=== PATIENT | female | born 1955 | race Caucasian/White ===

== ENCOUNTER 2017-11-30 17:18 | Emergency (ER) | payer MEDICARE, MEDICAID ==
[~2017-11-30] VITALS: Ht 162.6 cm; Wt 59.1 kg
[~2017-11-30 17:18] MED LIST: ALBU18HF2 INH; ALBU2.5V12 NEB; ALBU8.5H8 INH; ASPI-1265 PO; ATOR20TA66 PO; CETI-110 PO; CLON-528 PO; FLUT1BLS3 IH; GUAI-727 PO; HYDR-565 PO; LACT1CAP26 PO; LISI-604 PO; METO25TA6 PO; TIOT4MIS5 PO
[2017-11-30] MEDS ORDERED: magnesium 2GM in 50ml NS 50 ML IV ONE (18:00)
[2017-11-30] MEDS ORDERED: methylPREDNISolone sod succ 125mg/2ml vial IV ONE (18:00)
[2017-11-30] MEDS ORDERED: ipratropium/albuterol 3ml nebule NEB ONE (18:00)
[2017-11-30 18:15] LABS: BASOPHILS % (AUTO) 0.1 % (0-1); EOSINOPHILS # (AUTO) 0.4 X10'3 (0-0.9); EOSINOPHILS % (AUTO) 4.9 % (0-6); HEMATOCRIT 34.6 % (35.0-45.0); HEMOGLOBIN 11.7 g/dl (12.0-16.0); LYMPHOCYTES # (AUTO) 0.9 X10'3 (1.1-4.8); LYMPHOCYTES % (AUTO) 10.7 % (21-51); MEAN CORPUSCULAR HEMOGLOBIN 30.8 PG (27.0-31.0); MEAN CORPUSCULAR HGB CONC 33.7 % (33.0-36.5); MEAN CORPUSCULAR VOLUME 91.3 FL (78-98); MEAN PLATELET VOLUME 6.9 FL (7.4-10.4); MONOCYTES # (AUTO) 0.4 X10'3 (0-0.9); MONOCYTES % (AUTO) 4.6 % (2-12); NEUTROPHILS # (AUTO) 6.9 X10'3 (1.8-7.7); NEUTROPHILS % (AUTO) 79.7 % (42-75); PLATELET COUNT 399 X10'3 (140-440); RED BLOOD COUNT 3.79 X10'6 (4.20-5.60); RED CELL DISTRIBUTION WIDTH 16.1 % (11.5-14.5); WHITE BLOOD COUNT 8.7 X10'3 (4.5-11.0)
[2017-11-30] MEDS ORDERED: LORazepam 1 MG tablet PO ONE (18:20)
[2017-11-30 18:28] LABS: ALANINE AMINOTRANSFERASE 20 U/L (12-78); ALBUMIN 3.3 G/DL (3.4-5.0); ALBUMIN/GLOBULIN RATIO 0.7 (1.1-1.5); ALKALINE PHOSPHATASE 86 IU/L (46-116); ANION GAP 9 (8-16); ASPARTATE AMINO TRANSFERASE 17 U/L (10-37); BILIRUBIN,TOTAL 0.3 MG/DL (0.1-1.0); BLOOD UREA NITROGEN 19 MG/DL (7-18); BUN/CREATININE RATIO 27.1 (6.6-38.0); CALCIUM 9.3 MG/DL (8.5-10.1); CHLORIDE 101 MMOL/L (99-107); GLUCOSE 127 MG/DL (70-104); POTASSIUM 3.5 MMOL/L (3.5-5.1); SODIUM 142 MMOL/L (135-145); TOTAL CARBON DIOXIDE 32.1 MMOL/L (24-32); TOTAL PROTEIN 7.8 G/DL (6.4-8.2); eGFR 85 ML/MIN
[2017-11-30 18:48] LABS: PARTIAL THROMBOPLASTIN TIME 27 SECONDS (22-32)
[2017-11-30] MEDS ORDERED: HYDROcodone/acetaminophen 10/325mg tab PO ONE (19:10)
[2017-11-30] MEDS ORDERED: PRED20TA PO (19:34)
[2017-11-30] MEDS ORDERED: ALBU6.7H INH (19:34)
[2017-11-30 19:49] VITALS: BP 120/83
== END 2017-11-30 20:02 | disposition home or self-care (01) ==
LOC: ER 17:18
DX: J44.1 Chronic obstructive pulmonary disease with (acute) exacerbation (principal); E78.00 Pure hypercholesterolemia, unspecified; I10 Essential (primary) hypertension; G89.29 Other chronic pain; F41.9 Anxiety disorder, unspecified; Z56.0 Unemployment, unspecified; Z60.2 Problems related to living alone; Z99.81 Dependence on supplemental oxygen; Z79.82 Long term (current) use of aspirin; Z79.899 Other long term (current) drug therapy; Z90.49 Acquired absence of other specified parts of digestive tract
CPT/HCPCS: 36415; 71045; 80053; 85025; 85610; 85730; 93005; 94640; 94760; 96365; 96375; 99285; J2930; J3475

== ENCOUNTER 2017-12-16 10:47 | Emergency (ER) | payer MEDICARE, MEDICAID ==
[~2017-12-16] VITALS: Ht 162.6 cm; Wt 56.8 kg
[~2017-12-16 10:47] MED LIST changes: +ALBU6.7H INH
[2017-12-16] MEDS ORDERED: albuterol 2.5 MG/3 ML nebule CONTNEB PRN (11:25)
[2017-12-16] MEDS ORDERED: LORazepam 2 mg/ml vial IV ONE (11:25)
[2017-12-16] MEDS ORDERED: methylPREDNISolone sod succ 125mg/2ml vial IV ONE (11:25)
[2017-12-16] MEDS ORDERED: magnesium 2GM in 50ml NS 50 ML IV ONE (11:25)
[2017-12-16 11:41] LABS: HEMATOCRIT 36.1 % (35.0-45.0); HEMOGLOBIN 12.4 g/dl (12.0-16.0); MEAN CORPUSCULAR HEMOGLOBIN 31.8 PG (27.0-31.0); MEAN CORPUSCULAR HGB CONC 34.5 % (33.0-36.5); MEAN CORPUSCULAR VOLUME 92.3 FL (78-98); MEAN PLATELET VOLUME 6.9 FL (7.4-10.4); PLATELET COUNT 376 X10'3 (140-440); RED BLOOD COUNT 3.91 X10'6 (4.20-5.60); RED CELL DISTRIBUTION WIDTH 16.6 % (11.5-14.5); WHITE BLOOD COUNT 9.7 X10'3 (4.5-11.0)
[2017-12-16] MEDS ORDERED: metoprolol succinate 25mg (24-HOUR) SR. Tablet PO STA (11:55)
[2017-12-16] MEDS ORDERED: HYDROcodone/acetaminophen 5mg/325mg tablet PO ONE (12:00)
[2017-12-16 12:02] LABS: ALANINE AMINOTRANSFERASE 13 U/L (12-78); ALBUMIN 3.5 G/DL (3.4-5.0); ALBUMIN/GLOBULIN RATIO 0.7 (1.1-1.5); ALKALINE PHOSPHATASE 100 IU/L (46-116); ANION GAP 4 (8-16); ASPARTATE AMINO TRANSFERASE 17 U/L (10-37); BILIRUBIN,TOTAL 0.3 MG/DL (0.1-1.0); BLOOD UREA NITROGEN 13 MG/DL (7-18); BUN/CREATININE RATIO 24.5 (6.6-38.0); CALCIUM 9.6 MG/DL (8.5-10.1); CHLORIDE 102 MMOL/L (99-107); CREATININE 0.53 MG/DL (0.40-0.90); GLUCOSE 119 MG/DL (70-104); POTASSIUM 3.6 MMOL/L (3.5-5.1); SODIUM 142 MMOL/L (135-145); TOTAL CARBON DIOXIDE 36.1 MMOL/L (24-32); TOTAL PROTEIN 8.2 G/DL (6.4-8.2); eGFR > 90 ML/MIN
[2017-12-16 12:09] LABS: ANISOCYTOSIS 1+; PLATELET ESTIMATE NORMAL; TOTAL CELLS COUNTED 100
[2017-12-16] MEDS ORDERED: ALBU18HF2 INH (13:28)
[2017-12-16] MEDS ORDERED: PRED20TA PO (13:28)
[2017-12-16 13:47] VITALS: BP 130/86
== END 2017-12-16 14:21 | disposition home or self-care (01) ==
LOC: ER 10:47
DX: J44.1 Chronic obstructive pulmonary disease with (acute) exacerbation (principal); J96.00 Acute respiratory failure, unspecified whether with hypoxia or hypercapnia; I10 Essential (primary) hypertension; E78.00 Pure hypercholesterolemia, unspecified; G89.29 Other chronic pain; Z60.2 Problems related to living alone; Z56.0 Unemployment, unspecified; Z79.82 Long term (current) use of aspirin; Z79.899 Other long term (current) drug therapy
CPT/HCPCS: 36415; 71045; 80053; 83880; 84484; 85025; 93005; 94644; 94760; 96365; 96375; 99285; J2060; J2930; J3475

== ENCOUNTER 2018-02-13 10:26 | Inpatient (IN) | payer MEDICARE, MEDICAID ==
[~2018-02-13] VITALS: Ht 167.6 cm; Wt 56.6 kg
[2018-02-13] VITALS (11 sets, daily range): BP systolic 83–151; BP diastolic 58–90
[~2018-02-13 10:26] MED LIST changes: -ALBU2.5V12 NEB; -ALBU6.7H INH; -ALBU8.5H8 INH; -GUAI-727 PO
[2018-02-13] MEDS ORDERED: dexamethasone sod phosphate 10mg/ml inj IV STA (10:32)
[2018-02-13] MEDS ORDERED: ipratropium/albuterol 3ml nebule NEB ONE (10:35)
[2018-02-13] MEDS ORDERED: CefTRIAXone 2gm/D5W 50ml 50 ML IV ONE (10:40)
[2018-02-13] MEDS ORDERED: normal saline 1000ML IV soln IV ONE (10:40)
[2018-02-13] MEDS ORDERED: piperacillin/tazo 3.375gm/50ml 50 ML IV ONE (10:40)
[2018-02-13 10:56] LABS: ABG BASE EXCESS 13.4 mmol/L (-2.0-3.0); ABG HCO3 42.5 mmol/L (22.0-26.0); ABG OXYGEN SATURATION 98.4 % (95-98); ABG PCO2 (T) 86.6 mmHg (32.0-45.0); ABG PH (T) 7.309 (7.350-7.450); ABG PO2 (T) 131.1 mmHg (83-108); ALLEN'S TEST Positive; FCOHb 1.1 % (0.5-1.5); FLOW 5 L/min; FMetHb 0.3 % (0.3-1.12); TOTAL HEMOGLOBIN 10.3 G/dl (12.0-16.0)
[2018-02-13 11:15] LABS: BASOPHILS % (AUTO) 0.1 % (0-1); EOSINOPHILS % (AUTO) 0 % (0-6); HEMATOCRIT 31.5 % (35.0-45.0); HEMOGLOBIN 10.2 g/dl (12.0-16.0); LYMPHOCYTES # (AUTO) 1.8 X10'3 (1.1-4.8); LYMPHOCYTES % (AUTO) 7.5 % (21-51); MEAN CORPUSCULAR HEMOGLOBIN 28.6 PG (27.0-31.0); MEAN CORPUSCULAR HGB CONC 32.3 % (33.0-36.5); MEAN CORPUSCULAR VOLUME 88.5 FL (78-98); MEAN PLATELET VOLUME 6.4 FL (7.4-10.4); MONOCYTES # (AUTO) 0.6 X10'3 (0-0.9); MONOCYTES % (AUTO) 2.7 % (2-12); NEUTROPHILS # (AUTO) 21.7 X10'3 (1.8-7.7); NEUTROPHILS % (AUTO) 89.7 % (42-75); PLATELET COUNT 826 X10'3 (140-440); RED BLOOD COUNT 3.56 X10'6 (4.20-5.60); RED CELL DISTRIBUTION WIDTH 16.4 % (11.5-14.5); WHITE BLOOD COUNT 24.1 X10'3 (4.5-11.0)
[2018-02-13 11:42] LABS: ALANINE AMINOTRANSFERASE 20 U/L (12-78); ALBUMIN/GLOBULIN RATIO 0.3 (1.1-1.5); ALKALINE PHOSPHATASE 246 IU/L (46-116); ANION GAP 3 (8-16); ASPARTATE AMINO TRANSFERASE 31 U/L (10-37); BILIRUBIN,TOTAL 0.2 MG/DL (0.1-1.0); BLOOD UREA NITROGEN 12 MG/DL (7-18); BUN/CREATININE RATIO 19.7 (6.6-38.0); CALCIUM 10.2 MG/DL (8.5-10.1); CHLORIDE 99 MMOL/L (99-107); CREATININE 0.61 MG/DL (0.40-0.90); GLUCOSE 149 MG/DL (70-104); POTASSIUM 4.3 MMOL/L (3.5-5.1); SODIUM 144 MMOL/L (135-145); TOTAL PROTEIN 8.5 G/DL (6.4-8.2); eGFR > 90 ML/MIN
[2018-02-13 11:43] LABS: TOTAL CARBON DIOXIDE 41.8 MMOL/L (24-32)
[2018-02-13 11:46] LABS: TOTAL CELLS COUNTED 100
[2018-02-13 11:48] LABS: ANISOCYTOSIS 1+; HYPOCHROMASIA 1+; PLATELET ESTIMATE INCREASED; POLYCHROMASIA 1+; TOXIC GRANULATION 1+
[2018-02-13] MEDS ORDERED: ACET-2119 PO (12:04)
[2018-02-13] MEDS ORDERED: DOCU283E2 RC (12:04)
[2018-02-13] MEDS ORDERED: LEVO500T2 PO (12:04)
[2018-02-13] MEDS ORDERED: INSU100V5 IJ (12:04)
[2018-02-13] MEDS ORDERED: MORP15TA60 PO (12:04)
[2018-02-13] MEDS ORDERED: HYDR-565 PO (12:09)
[2018-02-13] MEDS ORDERED: [UNRECOGNIZED DRUG - OTHER] (12:09)
[2018-02-13] MEDS ORDERED: PROTONIX (12:09)
[2018-02-13 12:16] LABS: ABG BASE EXCESS 12.8 mmol/L (-2.0-3.0); ABG HCO3 40.9 mmol/L (22.0-26.0); ABG OXYGEN SATURATION 95.2 % (95-98); ABG PCO2 (T) 78.8 mmHg (32.0-45.0); ABG PH (T) 7.333 (7.350-7.450); ABG PO2 (T) 81.8 mmHg (83-108); ALLEN'S TEST Positive; FCOHb 1.3 % (0.5-1.5); FMetHb 0.3 % (0.3-1.12); FO2Hb 93.7 % (94-100); MINUTE VOLUME 16 L/min; RESPIRATORY RATE 20 b/min; RESPIRATORY RATE (OBSERVED) 43 b/min; TOTAL HEMOGLOBIN 9.1 G/dl (12.0-16.0)
[2018-02-13] MEDS ORDERED: heparin 10,000 units/1 ML INJ IV ONE ×2 (12:45)
[2018-02-13] MEDS ORDERED: aspirin 300mg supp.rect RC ONE (12:45)
[2018-02-13 13:01] LABS: INR 1.1 INR; PROTHROMBIN TIME 10.9 SECONDS (9.0-12.0)
[2018-02-13] MEDS ORDERED: rocuronium 10mg/ml inj IV ONE ×2 (13:30→14:00)
[2018-02-13] MEDS ORDERED: MIDAZolam 5mg/ml 2ml vial IV ONE (13:30)
[2018-02-13] MEDS ORDERED: etomidate 2mg/ml inj. IV ONE (13:30)
[2018-02-13] MEDS ORDERED: propofol 1000mg/100ml bottle 100 ML IV ONE (13:30)
[2018-02-13] MEDS ORDERED: etomidate 2mg/ml inj. ONE (14:00)
[2018-02-13 14:16] LABS: ABG BASE EXCESS 9.9 mmol/L (-2.0-3.0); ABG HCO3 37.4 mmol/L (22.0-26.0); ABG OXYGEN SATURATION 95.7 % (95-98); ABG PCO2 (T) 69.3 mmHg (32.0-45.0); ABG PO2 (T) 84.8 mmHg (83-108); ALLEN'S TEST Positive; FCOHb 1.3 % (0.5-1.5); FMetHb 0.3 % (0.3-1.12); FO2Hb 94.2 % (94-100); MINUTE VOLUME 6 L/min; PEEP 5 cm H2O; RESPIRATORY RATE 18 b/min; RESPIRATORY RATE (OBSERVED) 18 b/min; TOTAL HEMOGLOBIN 9.8 G/dl (12.0-16.0)
[2018-02-13] MEDS ORDERED: albuterol 2.5 MG/3 ML nebule NEB PRN (16:10)
[2018-02-13] MEDS ORDERED: methylPREDNISolone sod succ 125mg/2ml vial IV ONE (16:10)
[2018-02-13] MEDS ORDERED: fentaNYL/PF 50MCG/1 ML 2ML syringe IV PRN (16:10)
[2018-02-13] MEDS ORDERED: midazolam 2 mg/2 ml injection IV ONE (16:10)
[2018-02-13] MEDS: midazolam 100mg in NS 100ml 100 ML IV PRN (16:37)
[2018-02-13] MEDS: FENTANYL-0.9 % NACL/PF 100 ML IV PRN (16:38)
[2018-02-13] MEDS: levoFLOXACIN-Levaquin 750MG/D5 150 ML IV SCH (16:55)
[2018-02-13 17:51] LABS: OXYGEN SATURATION (MIXED VEN) 68.8 % (60-80); PO2 MIXED VENOUS (TEMP COR) 34.9 mmHg (35-46)
[2018-02-13 18:40] LABS: COLOR,URINE YELLOW (Yellow); GLUCOSE, URINE NEGATIVE (Neg); KETONES,URINE NEGATIVE (Neg); LEUKOCYTE ESTERASE ,URINE NEGATIVE (Neg); NITRITES, URINE NEGATIVE (Neg); OCCULT BLOOD,URINE SMALL (Neg); PROTEIN,URINE 100 mg/dl (Neg); UROBILINOGEN,URINE 0.2 E.U/dL (0.2-1.0)
[2018-02-13] MEDS ORDERED: insulin Lispro (HumaLOG) vial - multi-dose SQ SCH (18:40)
[2018-02-13] MEDS ORDERED: MESSAGE TO PHARMACY PO ONE (18:40)
[2018-02-13] MEDS ORDERED: dextrose ORAL solution 15 GM/59 ML bottle PO PRN ×2 (18:40)
[2018-02-13] MEDS ORDERED: glucagon, human recombinant 1mg kit SUBCUT PRN (18:40)
[2018-02-13] MEDS ORDERED: dextrose 50%-water 50ml dispensing syringe IV PRN ×2 (18:40)
[2018-02-13 18:50] LABS: CLARITY,URINE SLIGHTLY CLOUDY (Clear); UA COLLECTION TYPE FOLEY CATH
[2018-02-13 18:53] LABS: BACTERIA,URINE FEW /HPF (Neg); SQUAMOUS EPITHELIAL CELL,UR FEW /LPF (FEW); WBC,URINE 0-4 /HPF (0-4); YEAST MANY /HPF (NEGATIVE)
[2018-02-13] MEDS: normal saline 1000ml 1,000 ML IV SCH (18:55)
[2018-02-13] MEDS: ipratropium/albuterol 3ml nebule NEB SCH ×2 (19:14→22:54)
[2018-02-13] MEDS ORDERED: normal saline 500ml IV soln 500 ML IV ONE (19:35)
[2018-02-13] MEDS: heparin 10,000 units/1 ML INJ IV PRN (22:52)
[2018-02-14] VITALS (23 sets, daily range): BP systolic 83–164; BP diastolic 51–98
[2018-02-14] MEDS: cefepime 1GM/NS ADD-VANTAGE 100 ML IV SCH ×3 (00:53→16:03)
[2018-02-14] MEDS: ipratropium/albuterol 3ml nebule NEB SCH ×6 (02:52→22:57)
[2018-02-14] MEDS: normal saline 1000ml 1,000 ML IV SCH ×2 (03:35→16:03)
[2018-02-14] MEDS: FENTANYL-0.9 % NACL/PF 100 ML IV PRN ×2 (03:35→15:50)
[2018-02-14 04:10] LABS: ABG HCO3 34.9 mmol/L (22.0-26.0); ABG OXYGEN SATURATION 97.7 % (95-98); ABG PCO2 (T) 54.3 mmHg (32.0-45.0); ABG PH (T) 7.422 (7.350-7.450); ALLEN'S TEST Positive; FMetHb 0.3 % (0.3-1.12); FO2Hb 96.4 % (94-100); PEEP 5 cm H2O; RESPIRATORY RATE 18 b/min; TIDAL VOLUME 350 mL; TOTAL HEMOGLOBIN 8.3 G/dl (12.0-16.0)
[2018-02-14 04:30] LABS: BASOPHILS % (AUTO) 0 % (0-1); EOSINOPHILS % (AUTO) 0 % (0-6); HEMATOCRIT 22.6 % (35.0-45.0); HEMOGLOBIN 7.4 g/dl (12.0-16.0); LYMPHOCYTES # (AUTO) 1.3 X10'3 (1.1-4.8); MEAN CORPUSCULAR HEMOGLOBIN 28.7 PG (27.0-31.0); MEAN CORPUSCULAR HGB CONC 32.7 % (33.0-36.5); MEAN CORPUSCULAR VOLUME 87.5 FL (78-98); MONOCYTES # (AUTO) 0.1 X10'3 (0-0.9); MONOCYTES % (AUTO) 1.4 % (2-12); NEUTROPHILS # (AUTO) 8.4 X10'3 (1.8-7.7); NEUTROPHILS % (AUTO) 85.6 % (42-75); PLATELET COUNT 569 X10'3 (140-440); RED BLOOD COUNT 2.58 X10'6 (4.20-5.60); RED CELL DISTRIBUTION WIDTH 16.4 % (11.5-14.5); WHITE BLOOD COUNT 9.8 X10'3 (4.5-11.0)
[2018-02-14] MEDS: heparin 10,000 units/1 ML INJ IV PRN ×2 (04:54→10:04)
[2018-02-14 07:10] LABS: BASOPHILS % (AUTO) 0.1 % (0-1); EOSINOPHILS % (AUTO) 0.1 % (0-6); HEMATOCRIT 22.4 % (35.0-45.0); HEMOGLOBIN 7.3 g/dl (12.0-16.0); LYMPHOCYTES # (AUTO) 1.4 X10'3 (1.1-4.8); LYMPHOCYTES % (AUTO) 13.3 % (21-51); MEAN CORPUSCULAR HEMOGLOBIN 28.7 PG (27.0-31.0); MEAN CORPUSCULAR HGB CONC 32.6 % (33.0-36.5); MEAN CORPUSCULAR VOLUME 88.1 FL (78-98); MEAN PLATELET VOLUME 6.4 FL (7.4-10.4); MONOCYTES # (AUTO) 0.3 X10'3 (0-0.9); MONOCYTES % (AUTO) 2.7 % (2-12); NEUTROPHILS # (AUTO) 8.7 X10'3 (1.8-7.7); NEUTROPHILS % (AUTO) 83.8 % (42-75); PLATELET COUNT 580 X10'3 (140-440); RED BLOOD COUNT 2.55 X10'6 (4.20-5.60); RED CELL DISTRIBUTION WIDTH 16.2 % (11.5-14.5); WHITE BLOOD COUNT 10.4 X10'3 (4.5-11.0)
[2018-02-14 07:30] LABS: ALBUMIN 1.5 G/DL (3.4-5.0); ANION GAP 6 (8-16); BLOOD UREA NITROGEN 22 MG/DL (7-18); CHLORIDE 106 MMOL/L (99-107); CREATININE 0.55 MG/DL (0.40-0.90); GLUCOSE 167 MG/DL (70-104); MAGNESIUM 1.7 MG/DL (1.5-2.4); POTASSIUM 3.7 MMOL/L (3.5-5.1); SODIUM 146 MMOL/L (135-145); TOTAL CARBON DIOXIDE 34.3 MMOL/L (24-32); eGFR > 90 ML/MIN
[2018-02-14] MEDS: midazolam 100mg in NS 100ml 100 ML IV PRN (08:19)
[2018-02-14] MEDS: levoFLOXACIN-Levaquin 750MG/D5 150 ML IV SCH (08:22)
[2018-02-14] MEDS: pantoprazole 40 MG vial IV SCH (13:54)
[2018-02-14] MEDS: methylPREDNISolone sod succ 125mg/2ml vial IV SCH (16:03)
[2018-02-14] MEDS: mineral oil/petrolatum ophthal oint EACHEYE SCH (20:47)
[2018-02-15] VITALS (31 sets, daily range): BP systolic 86–167; BP diastolic 51–106
[2018-02-15] MEDS: cefepime 1GM/NS ADD-VANTAGE 100 ML IV SCH ×4 (00:33→23:30)
[2018-02-15] MEDS: clonazePAM 0.5mg tablet PO SCH ×4 (00:34→20:02)
[2018-02-15] MEDS: methylPREDNISolone sod succ 125mg/2ml vial IV SCH ×4 (00:34→23:30)
[2018-02-15] MEDS: FENTANYL-0.9 % NACL/PF 100 ML IV PRN ×3 (00:35→12:32)
[2018-02-15] MEDS: mineral oil/petrolatum ophthal oint EACHEYE SCH ×4 (02:00→20:02)
[2018-02-15] MEDS: normal saline 1000ml 1,000 ML IV SCH ×3 (03:20→23:31)
[2018-02-15] MEDS: ipratropium/albuterol 3ml nebule NEB SCH ×6 (03:23→23:09)
[2018-02-15 03:53] LABS: BASOPHILS % (AUTO) 0 % (0-1); EOSINOPHILS % (AUTO) 0.4 % (0-6); LYMPHOCYTES # (AUTO) 1.3 X10'3 (1.1-4.8); LYMPHOCYTES % (AUTO) 10.3 % (21-51); MEAN CORPUSCULAR HEMOGLOBIN 28.7 PG (27.0-31.0); MEAN CORPUSCULAR HGB CONC 32.8 % (33.0-36.5); MEAN CORPUSCULAR VOLUME 87.5 FL (78-98); MEAN PLATELET VOLUME 6.8 FL (7.4-10.4); MONOCYTES # (AUTO) 0.2 X10'3 (0-0.9); MONOCYTES % (AUTO) 1.3 % (2-12); NEUTROPHILS # (AUTO) 11.3 X10'3 (1.8-7.7); PLATELET COUNT 456 X10'3 (140-440); RED BLOOD COUNT 2.45 X10'6 (4.20-5.60); RED CELL DISTRIBUTION WIDTH 16.8 % (11.5-14.5); WHITE BLOOD COUNT 12.9 X10'3 (4.5-11.0)
[2018-02-15 03:55] LABS: ABG BASE EXCESS 7.4 mmol/L (-2.0-3.0); ABG HCO3 33.3 mmol/L (22.0-26.0); ABG OXYGEN SATURATION 97.1 % (95-98); ABG PCO2 (T) 56.9 mmHg (32.0-45.0); ABG PH (T) 7.385 (7.350-7.450); ABG PO2 (T) 99.1 mmHg (83-108); FCOHb 0.6 % (0.5-1.5); FMetHb 0.3 % (0.3-1.12); FO2Hb 96.2 % (94-100); PATIENT TEMPERATURE 36.9; PEEP 5 cm H2O; RESPIRATORY RATE 18 b/min; TIDAL VOLUME 350 mL; TOTAL HEMOGLOBIN 7.6 G/dl (12.0-16.0)
[2018-02-15 04:05] LABS: HEMATOCRIT 21.5 % (35.0-45.0)
[2018-02-15 04:32] LABS: ALBUMIN 1.7 G/DL (3.4-5.0); ANION GAP 4 (8-16); BLOOD UREA NITROGEN 29 MG/DL (7-18); BUN/CREATININE RATIO 49.2 (6.6-38.0); CHLORIDE 108 MMOL/L (99-107); CREATININE 0.59 MG/DL (0.40-0.90); GLUCOSE 130 MG/DL (70-104); MAGNESIUM 1.9 MG/DL (1.5-2.4); POTASSIUM 4.2 MMOL/L (3.5-5.1); SODIUM 146 MMOL/L (135-145); TOTAL CARBON DIOXIDE 34.3 MMOL/L (24-32); eGFR > 90 ML/MIN
[2018-02-15] MEDS: midazolam 100mg in NS 100ml 100 ML IV PRN (05:56)
[2018-02-15] MEDS: levoFLOXACIN-Levaquin 750MG/D5 150 ML IV SCH (06:58)
[2018-02-15] MEDS: pantoprazole 40 MG vial IV SCH (07:00)
[2018-02-15] MEDS ORDERED: enoxaparin 30mg/0.3ml syringe SUBCUT SCH (08:00)
[2018-02-15] MEDS ORDERED: IPRA3AMP9 IH (09:13)
[2018-02-15] MEDS ORDERED: LEVO500T2 PO (09:14)
[2018-02-15] MEDS ORDERED: PANT-47 PO (09:15)
[2018-02-15] MEDS ORDERED: morphine 10 MG/5 ML UD oral solution PO PRN (11:10)
[2018-02-15] MEDS ORDERED: insulin regular, human vial - multi-dose SQ SCH (12:27)
[2018-02-15 17:18] LABS: HEMOGLOBIN 9.3 g/dl (12.0-16.0); MEAN CORPUSCULAR HEMOGLOBIN 28.8 PG (27.0-31.0); MEAN CORPUSCULAR HGB CONC 33.3 % (33.0-36.5); MEAN CORPUSCULAR VOLUME 86.3 FL (78-98); PLATELET COUNT 434 X10'3 (140-440); RED BLOOD COUNT 3.24 X10'6 (4.20-5.60); RED CELL DISTRIBUTION WIDTH 16.7 % (11.5-14.5); WHITE BLOOD COUNT 14.9 X10'3 (4.5-11.0)
[2018-02-16] VITALS (27 sets, daily range): BP systolic 112–189; BP diastolic 68–123
[2018-02-16] MEDS: mineral oil/petrolatum ophthal oint EACHEYE SCH ×4 (02:00→20:00)
[2018-02-16] MEDS: ipratropium/albuterol 3ml nebule NEB SCH ×4 (03:11→20:38)
[2018-02-16 03:31] LABS: ABG BASE EXCESS 2.9 mmol/L (-2.0-3.0); ABG HCO3 29.2 mmol/L (22.0-26.0); ABG OXYGEN SATURATION 95.3 % (95-98); ABG PCO2 (T) 51.8 mmHg (32.0-45.0); ABG PH (T) 7.366 (7.350-7.450); ABG PO2 (T) 80.6 mmHg (83-108); FCOHb 0.6 % (0.5-1.5); FMetHb 0.3 % (0.3-1.12); FO2Hb 94.4 % (94-100); MINUTE VOLUME 7 L/min; PATIENT TEMPERATURE 36.2; PEEP 5 cm H2O; RESPIRATORY RATE 18 b/min; RESPIRATORY RATE (OBSERVED) 18 b/min; TIDAL VOLUME 350 mL; TOTAL HEMOGLOBIN 10.5 G/dl (12.0-16.0)
[2018-02-16 05:10] LABS: HEMATOCRIT 30.4 % (35.0-45.0); HEMOGLOBIN 9.9 g/dl (12.0-16.0); MEAN CORPUSCULAR HEMOGLOBIN 28.1 PG (27.0-31.0); MEAN CORPUSCULAR HGB CONC 32.5 % (33.0-36.5); MEAN CORPUSCULAR VOLUME 86.5 FL (78-98); MEAN PLATELET VOLUME 7.4 FL (7.4-10.4); PLATELET COUNT 398 X10'3 (140-440); RED BLOOD COUNT 3.52 X10'6 (4.20-5.60); WHITE BLOOD COUNT 10.9 X10'3 (4.5-11.0)
[2018-02-16 06:40] LABS: ANISOCYTOSIS 1+; BANDS% (MANUAL) 4 % (0-10); LARGE PLATELETS FEW; LYMPHOCYTES % (MANUAL) 6 % (21-51); METAMYLEOCYTES% (MANUAL) 1 % (0-0); MONOCYTES % (MANUAL) 3 % (2-12); NEUTROPHILS % (MANUAL) 86 % (42-75); NUCLEATED RED BLOOD CELLS 1 /100WBC (0-0); PLATELET ESTIMATE NORMAL; TOTAL CELLS COUNTED 100
[2018-02-16] MEDS: midazolam 100mg in NS 100ml 100 ML IV PRN (06:48)
[2018-02-16] MEDS: clonazePAM 0.5mg tablet PO SCH ×3 (06:51→20:17)
[2018-02-16] MEDS: pantoprazole 40 MG vial IV SCH (06:51)
[2018-02-16] MEDS: FENTANYL-0.9 % NACL/PF 100 ML IV PRN (06:51)
[2018-02-16] MEDS: levoFLOXACIN-Levaquin 750MG/D5 150 ML IV SCH (06:52)
[2018-02-16] MEDS: cefepime 1GM/NS ADD-VANTAGE 100 ML IV SCH (06:52)
[2018-02-16] MEDS: methylPREDNISolone sod succ 125mg/2ml vial IV SCH ×3 (06:53→20:17)
[2018-02-16] MEDS: enoxaparin 40mg/0.4ml syringe SUBCUT SCH (07:18)
[2018-02-16 07:44] LABS: ALBUMIN 1.9 G/DL (3.4-5.0); ANION GAP 4 (8-16); BLOOD UREA NITROGEN 42 MG/DL (7-18); BUN/CREATININE RATIO 64.6 (6.6-38.0); CHLORIDE 109 MMOL/L (99-107); CREATININE 0.65 MG/DL (0.40-0.90); GLUCOSE 180 MG/DL (70-104); MAGNESIUM 1.8 MG/DL (1.5-2.4); POTASSIUM 4.2 MMOL/L (3.5-5.1); SODIUM 142 MMOL/L (135-145); TOTAL CARBON DIOXIDE 28.8 MMOL/L (24-32); eGFR > 90 ML/MIN
[2018-02-16 07:48] LABS: PREALBUMIN 17.1 MG/DL (19-36)
[2018-02-16] MEDS ORDERED: racepinephrine 11.25mg/0.5ml nebule NEB PRN (09:55)
[2018-02-16] MEDS ORDERED: ipratropium/albuterol 3ml nebule NEB PRN (09:55)
[2018-02-16] MEDS ORDERED: HYDROcodone/acetaminophen 10/325mg tab PO PRN (11:00)
[2018-02-16] MEDS: morphine ER 15mg tablet PO SCH (11:05)
[2018-02-16] MEDS ORDERED: morphine 4 MG/ML inj SYRINge IV ONE ×2 (12:30→13:00)
[2018-02-16] MEDS ORDERED: morphine 4 MG/ML inj SYRINge IM ONE (13:00)
[2018-02-16] MEDS ORDERED: LORazepam 2 mg/ml vial IV ONE (13:35)
[2018-02-16] MEDS ORDERED: morphine/NS 5 mg/ml CADD 100 ML IV SCH (13:35)
[2018-02-16] MEDS: normal saline 1000ml 1,000 ML IV SCH ×2 (13:45→20:29)
[2018-02-16] MEDS ORDERED: benzocaine/menthol oral lozeng 1 EACH BOX MM PRN (14:00)
[2018-02-16] MEDS ORDERED: CADD PCA waste documentation MC SCH (14:00)
[2018-02-16] MEDS: MORPHINE CADD 5 MG/ML 50ML IV SCH ×5 (14:35→23:00)
[2018-02-16] MEDS ORDERED: LORazepam 2 mg/ml vial ONE (18:27)
[2018-02-16] MEDS: lactobacillus rhamnosus 10,000 MMU CELLS/CAPSULE PO SCH (20:17)
[2018-02-17] VITALS (18 sets, daily range): BP systolic 120–200; BP diastolic 79–128
[2018-02-17] MEDS: morphine ER 15mg tablet PO SCH ×3 (00:33→15:30)
[2018-02-17] MEDS: MORPHINE CADD 5 MG/ML 50ML IV SCH ×9 (01:00→17:00)
[2018-02-17] MEDS: mineral oil/petrolatum ophthal oint EACHEYE SCH ×3 (02:00→14:00)
[2018-02-17] MEDS: ipratropium/albuterol 3ml nebule NEB SCH ×3 (02:01→15:54)
[2018-02-17] MEDS: methylPREDNISolone sod succ 125mg/2ml vial IV SCH ×3 (02:06→14:23)
[2018-02-17 05:44] LABS: HEMATOCRIT 30.1 % (35.0-45.0); HEMOGLOBIN 9.9 g/dl (12.0-16.0); MEAN CORPUSCULAR HEMOGLOBIN 28.9 PG (27.0-31.0); MEAN CORPUSCULAR VOLUME 87.4 FL (78-98); MEAN PLATELET VOLUME 7.5 FL (7.4-10.4); PLATELET COUNT 350 X10'3 (140-440); RED BLOOD COUNT 3.44 X10'6 (4.20-5.60); RED CELL DISTRIBUTION WIDTH 16.6 % (11.5-14.5); WHITE BLOOD COUNT 16.4 X10'3 (4.5-11.0)
[2018-02-17] MEDS: LORazepam 2 mg/ml vial IV PRN ×2 (06:07→14:23)
[2018-02-17] MEDS: normal saline 1000ml 1,000 ML IV SCH ×2 (06:29→16:29)
[2018-02-17 06:54] LABS: BANDS% (MANUAL) 1 % (0-10); LYMPHOCYTES % (MANUAL) 6 % (21-51); MONOCYTES % (MANUAL) 2 % (2-12); NEUTROPHILS % (MANUAL) 91 % (42-75); TOTAL CELLS COUNTED 100
[2018-02-17 06:55] LABS: ANISOCYTOSIS 1+; PLATELET ESTIMATE NORMAL
[2018-02-17 06:58] LABS: ALANINE AMINOTRANSFERASE 18 U/L (12-78); ALBUMIN 2.1 G/DL (3.4-5.0); ALBUMIN/GLOBULIN RATIO 0.5 (1.1-1.5); ALKALINE PHOSPHATASE 139 IU/L (46-116); ANION GAP 4 (8-16); ASPARTATE AMINO TRANSFERASE 11 U/L (10-37); BILIRUBIN,TOTAL 0.3 MG/DL (0.1-1.0); BLOOD UREA NITROGEN 34 MG/DL (7-18); BUN/CREATININE RATIO 64.2 (6.6-38.0); CALCIUM 9.2 MG/DL (8.5-10.1); CHLORIDE 107 MMOL/L (99-107); CREATININE 0.53 MG/DL (0.40-0.90); GLUCOSE 136 MG/DL (70-104); SODIUM 140 MMOL/L (135-145); TOTAL CARBON DIOXIDE 29.3 MMOL/L (24-32); TOTAL PROTEIN 6.2 G/DL (6.4-8.2); eGFR > 90 ML/MIN
[2018-02-17] MEDS: enoxaparin 40mg/0.4ml syringe SUBCUT SCH (08:00)
[2018-02-17] MEDS: lactobacillus rhamnosus 10,000 MMU CELLS/CAPSULE PO SCH (08:00)
[2018-02-17] MEDS: levoFLOXACIN-Levaquin 750MG/D5 150 ML IV SCH (08:00)
[2018-02-17] MEDS: pantoprazole 40 MG vial IV SCH (08:00)
[2018-02-17] MEDS: clonazePAM 0.5mg tablet PO SCH ×2 (08:00→13:00)
[2018-02-17] MEDS ORDERED: METH125V10 IV (12:54)
[2018-02-17] MEDS ORDERED: LACT1CAP26 PO (12:54)
[2018-02-17] MEDS ORDERED: ENOX40DI11 SUBCUT (12:54)
[2018-02-17] MEDS ORDERED: PANT40VI2 PO (12:54)
== END 2018-02-17 18:00 | DRG 208 ==
LOC: ER 10:26 → ED HOLD 15:51 → CICU 2S 16:27
PROVIDERS: ADMIT Internal Medicine Critical Care Medicine; ATTEND Internal Medicine Critical Care Medicine
PROC: 5A1945Z Respiratory Ventilation, 24-96 Consecutive Hours (ICD-10-PCS; principal; 2018-02-13)
PROC: 02HV33Z Insertion of Infusion Device into Superior Vena Cava, Percutaneous Approach (ICD-10-PCS; 2018-02-13)
PROC: 0BH17EZ Insertion of Endotracheal Airway into Trachea, Via Natural or Artificial Opening (ICD-10-PCS; 2018-02-13)
PROC: B548ZZA Ultrasonography of Superior Vena Cava, Guidance (ICD-10-PCS; 2018-02-13)
PROC: 30233N1 Transfusion of Nonautologous Red Blood Cells into Peripheral Vein, Percutaneous Approach (ICD-10-PCS; 2018-02-15)
DX: J96.01 Acute respiratory failure with hypoxia (principal); J18.1 Lobar pneumonia, unspecified organism; I21.4 Non-ST elevation (NSTEMI) myocardial infarction; J44.1 Chronic obstructive pulmonary disease with (acute) exacerbation; J44.0 Chronic obstructive pulmonary disease with (acute) lower respiratory infection; E87.2 Acidosis; J96.02 Acute respiratory failure with hypercapnia; I50.9 Heart failure, unspecified; E78.00 Pure hypercholesterolemia, unspecified; I11.0 Hypertensive heart disease with heart failure; K21.9 Gastro-esophageal reflux disease without esophagitis; E11.65 Type 2 diabetes mellitus with hyperglycemia; G89.29 Other chronic pain; M54.9 Dorsalgia, unspecified; F32.9 Major depressive disorder, single episode, unspecified; F41.9 Anxiety disorder, unspecified; Z90.49 Acquired absence of other specified parts of digestive tract; Z87.01 Personal history of pneumonia (recurrent); Z80.8 Family history of malignant neoplasm of other organs or systems
CPT/HCPCS: 36415; 36556; 36600; 71045; 71250; 74176; 80048; 80053; 81001; 82570; 82803; 82810; 82948; 83036; 83605; 83735; 83880; 84134; 84300; 84484; 85018; 85025; 85027; 85610; 85730; 86885; 86900; 86901; 86920; 87040; 87070; 92616; 93005; 94002; 94003; 94640; 94660; 94760; 96365; 96375; 97110; 97162; 97530; 99291; 99292; A6212; A6213; A6449; A7015; C1751; C1758; C9113; J0692; J0696; J1100; J1644; J1650; J1815; J1956; J2060; J2250; J2270; J2543; J2704; J2930; J3490; J7030; P9016

== ENCOUNTER 2018-04-29 01:55 | Inpatient (IN) | payer MEDICARE, MEDICAID ==
[~2018-04-29] VITALS: Ht 170.2 cm; Wt 56.2 kg
[2018-04-29] VITALS (17 sets, daily range): BP systolic 67–184; BP diastolic 40–107
[~2018-04-29 01:55] MED LIST changes: +ACET-2119 PO; -ALBU18HF2 INH; -ASPI-1265 PO; -ATOR20TA66 PO; -CETI-110 PO; -CLON-528 PO; +DOCU283E2 RC; +ENOX40DI11 SUBCUT; -FLUT1BLS3 IH; +INSU100V5 IJ; +IPRA3AMP9 IH; +LEVO500T2 PO; -LISI-604 PO; +METH125V10 IV; -METO25TA6 PO; +MORP15TA60 PO; +PANT-47 PO; +PANT40VI2 PO; -TIOT4MIS5 PO
[2018-04-29] MEDS ORDERED: propofol 1000mg/100ml bottle 100 ML IV ONE (02:10)
[2018-04-29] MEDS ORDERED: propofol 1000mg/100ml bottle 100 ML IV PRN (02:13)
[2018-04-29] MEDS ORDERED: methylPREDNISolone sod succ 125mg/2ml vial IV ONE (02:15)
[2018-04-29] MEDS ORDERED: azithromycin/NS 500mg/250ml 250 ML IV ONE (02:15)
[2018-04-29] MEDS ORDERED: etomidate 2mg/ml inj. IV ONE (02:15)
[2018-04-29] MEDS ORDERED: albuterol 2.5 MG/3 ML nebule CONTNEB PRN (02:15)
[2018-04-29] MEDS ORDERED: CefTRIAXone 2gm/D5W 50ml 50 ML IV ONE (02:15)
[2018-04-29] MEDS ORDERED: normal saline 1000ML IV soln IVB ONE ×2 (02:15→04:45)
[2018-04-29] MEDS ORDERED: succinylcholine 20mg/ml inj IV ONE (02:15)
[2018-04-29 02:31] LABS: ABG BASE EXCESS 2.2 mmol/L (-2.0-3.0); ABG HCO3 33.5 mmol/L (22.0-26.0); ABG PCO2 (T) 91.4 mmHg (32.0-45.0); ABG PH (T) 7.177 (7.350-7.450); ABG PO2 (T) 76.5 mmHg (83-108); FCOHb 0.9 % (0.5-1.5); FMetHb 0.1 % (0.3-1.12); FO2Hb 92.1 % (94-100); MINUTE VOLUME 7 L/min; PATIENT TEMPERATURE 36.1; PEEP 5 cm H2O; RESPIRATORY RATE 18 b/min; RESPIRATORY RATE (OBSERVED) 18 b/min; TIDAL VOLUME 350 mL; TOTAL HEMOGLOBIN 12.7 G/dl (12.0-16.0)
[2018-04-29 02:49] LABS: INR 0.9 INR; PARTIAL THROMBOPLASTIN TIME 25 SECONDS (22-32); PROTHROMBIN TIME 9.4 SECONDS (9.0-12.0)
[2018-04-29 02:55] LABS: ALANINE AMINOTRANSFERASE 44 U/L (12-78); ALBUMIN 3.3 G/DL (3.4-5.0); ALBUMIN/GLOBULIN RATIO 0.8 (1.1-1.5); ALKALINE PHOSPHATASE 144 IU/L (46-116); ANION GAP 3 (8-16); ASPARTATE AMINO TRANSFERASE 59 U/L (10-37); BILIRUBIN,TOTAL 0.3 MG/DL (0.1-1.0); BLOOD UREA NITROGEN 13 MG/DL (7-18); BUN/CREATININE RATIO 14.8 (6.6-38.0); CALCIUM 8.7 MG/DL (8.5-10.1); CHLORIDE 99 MMOL/L (99-107); CREATININE 0.88 MG/DL (0.40-0.90); GLUCOSE 276 MG/DL (70-104); SODIUM 137 MMOL/L (135-145); TOTAL CARBON DIOXIDE 34.9 MMOL/L (24-32); TOTAL PROTEIN 7.4 G/DL (6.4-8.2); eGFR 65 ML/MIN
[2018-04-29 02:57] LABS: CLARITY,URINE CLEAR (Clear); COLOR,URINE YELLOW (Yellow); GLUCOSE, URINE NEGATIVE (Neg); KETONES,URINE NEGATIVE (Neg); LEUKOCYTE ESTERASE ,URINE NEGATIVE (Neg); NITRITES, URINE NEGATIVE (Neg); OCCULT BLOOD,URINE SMALL (Neg); PROTEIN,URINE 30 mg/dl (Neg); UROBILINOGEN,URINE 0.2 E.U/dL (0.2-1.0)
[2018-04-29 03:00] LABS: HEMATOCRIT 36.1 % (35.0-45.0); MEAN CORPUSCULAR HEMOGLOBIN 32.1 PG (27.0-31.0); MEAN CORPUSCULAR HGB CONC 33.3 % (33.0-36.5); MEAN CORPUSCULAR VOLUME 96.4 FL (78-98); MEAN PLATELET VOLUME 7.2 FL (7.4-10.4); PLATELET COUNT 415 X10'3 (140-440); POTASSIUM 4.1 MMOL/L (3.5-5.1); RED BLOOD COUNT 3.75 X10'6 (4.20-5.60); RED CELL DISTRIBUTION WIDTH 16.3 % (11.5-14.5); WHITE BLOOD COUNT 16.1 X10'3 (4.5-11.0)
[2018-04-29 03:18] LABS: UA COLLECTION TYPE FOLEY CATH
[2018-04-29 03:22] LABS: BACTERIA,URINE FEW /HPF (Neg); RBC,URINE 0-2 /HPF (0-2); SQUAMOUS EPITHELIAL CELL,UR FEW /LPF (FEW); WBC,URINE 0-4 /HPF (0-4)
[2018-04-29 03:43] LABS: TOTAL CELLS COUNTED 100
[2018-04-29 03:44] LABS: ANISOCYTOSIS 1+; PLATELET ESTIMATE NORMAL
[2018-04-29] MEDS ORDERED: FERR325T28 PO (04:15)
[2018-04-29] MEDS ORDERED: [UNRECOGNIZED DRUG - CODE] PO (04:15)
[2018-04-29] MEDS ORDERED: CLON0.5T23 PO (04:15)
[2018-04-29] MEDS ORDERED: INSU100C10 SQ (04:15)
[2018-04-29] MEDS ORDERED: POLY17PO10 PO (04:15)
[2018-04-29] MEDS ORDERED: MULT-1085 PO (04:15)
[2018-04-29] MEDS ORDERED: PRED5TAB PO (04:15)
[2018-04-29] MEDS ORDERED: ASCO500C15 PO (04:15)
[2018-04-29] MEDS ORDERED: ALB0.5UD IH (04:15)
[2018-04-29] MEDS ORDERED: OMEP40CA37 PO (04:15)
[2018-04-29] MEDS ORDERED: TIOT18CA3 (04:15)
[2018-04-29] MEDS ORDERED: MORP30TA60 PO (04:15)
[2018-04-29] MEDS ORDERED: INSU100V9 SQ (04:15)
[2018-04-29] MEDS ORDERED: normal saline 1000ml 1,000 ML IVB ONE (04:21)
[2018-04-29] MEDS ORDERED: ondansetron/PF 4mg/2ml inj IV PRN (04:25)
[2018-04-29] MEDS ORDERED: magnesium hydroxide 30ml (MOM) UD suspension PO PRN (04:25)
[2018-04-29] MEDS ORDERED: dextrose 50%-water 50ml dispensing syringe IV PRN ×2 (04:25)
[2018-04-29] MEDS ORDERED: normal saline 250ml IV soln 250 ML IV ONE (04:25)
[2018-04-29] MEDS ORDERED: acetaminophen 650mg rectal suppository RC PRN (04:25)
[2018-04-29] MEDS ORDERED: acetaminophen 325mg tablet PO PRN ×2 (04:25)
[2018-04-29] MEDS ORDERED: glucagon, human recombinant 1mg kit SUBCUT PRN (04:25)
[2018-04-29] MEDS ORDERED: dextrose ORAL solution 15 GM/59 ML bottle PO PRN ×2 (04:25)
[2018-04-29] MEDS ORDERED: potassium Cl 40MEQ/NS 500ml 500 ML IV PRN ×2 (04:25)
[2018-04-29] MEDS ORDERED: insulin Lispro (HumaLOG) vial - multi-dose SQ SCH (04:25)
[2018-04-29] MEDS ORDERED: ipratropium/albuterol 3ml nebule NEB PRN (04:25)
[2018-04-29 04:30] LABS: ABG BASE EXCESS 3.4 mmol/L (-2.0-3.0); ABG HCO3 31.8 mmol/L (22.0-26.0); ABG OXYGEN SATURATION 90.6 % (95-98); ABG PCO2 (T) 70.1 mmHg (32.0-45.0); ABG PH (T) 7.276 (7.350-7.450); ABG PO2 (T) 67.3 mmHg (83-108); FCOHb 0.7 % (0.5-1.5); FMetHb 0.1 % (0.3-1.12); FO2Hb 89.9 % (94-100); MINUTE VOLUME 8 L/min; PATIENT TEMPERATURE 37.1; PEEP 5 cm H2O; RESPIRATORY RATE 22 b/min; RESPIRATORY RATE (OBSERVED) 22 b/min; TIDAL VOLUME 400 mL; TOTAL HEMOGLOBIN 11.5 G/dl (12.0-16.0)
[2018-04-29] MEDS ORDERED: MIDAZolam 5mg/ml 2ml vial IV ONE (04:45)
[2018-04-29 05:14] LABS: HEMOGLOBIN A1C 5.1 % (4.5-6.2)
[2018-04-29 05:18] LABS: URINE AMPHETAMINE SCREEN NEGATIVE (Neg); URINE BARBITUATE SCREEN NEGATIVE (Neg); URINE BENZODIAZEPINES SCREEN NEGATIVE (Neg); URINE CANNABINOID SCREEN NEGATIVE (Neg); URINE COCAINE SCREEN NEGATIVE (Neg); URINE METHADONE SCREEN NEGATIVE (Neg); URINE OPIATE SCREEN POSITIVE (Neg); URINE PHENCYCLIDINE SCREEN NEGATIVE (Neg)
[2018-04-29] MEDS: propofol 1000mg/100ml bottle 100 ML IV PRN (05:47)
[2018-04-29] MEDS: normal saline 1000ml 1,000 ML IV SCH ×2 (05:48→16:35)
[2018-04-29] MEDS: piperacillin/tazo 3.375gm/50ml 50 ML IV SCH ×3 (06:05→16:35)
[2018-04-29] MEDS: ipratropium/albuterol 3ml nebule NEB SCH ×5 (07:23→23:15)
[2018-04-29] MEDS: pantoprazole 40 MG vial IV SCH (07:46)
[2018-04-29] MEDS: ascorbic acid 500mg tablet PO SCH (07:46)
[2018-04-29] MEDS: methylPREDNISolone sod succ/PF 40mg inj. IV SCH ×3 (07:46→19:58)
[2018-04-29] MEDS: docusate sodium 100mg/10ml UD cup PO SCH ×2 (07:46→19:58)
[2018-04-29] MEDS: ferrous sulfate 325mg tablet PO SCH (07:47)
[2018-04-29] MEDS: enoxaparin 40mg/0.4ml syringe SUBCUT SCH (07:47)
[2018-04-29] MEDS: K and/or MAG REPLACEMENT MC SCH (07:48)
[2018-04-29] MEDS ORDERED: etomidate 2mg/ml inj. ONE (08:00)
[2018-04-29] MEDS ORDERED: albumin (human) 25% 100 ML IV solution IV ONE (11:05)
[2018-04-29] MEDS ORDERED: normal saline 500ml IV soln 500 ML IV PRN (11:20)
[2018-04-29] MEDS ORDERED: albumin (human) 25% 100ml IV 100 ML IV ONE (11:20)
[2018-04-29] MEDS: CefTRIAXone/D5W-Rocephin 1gm 50 ML IV SCH (19:58)
[2018-04-29] MEDS: FENTANYL-0.9 % NACL/PF 100 ML IV PRN (20:31)
[2018-04-29] MEDS: insulin glargine (Lantus) pen - multi-dose SQ SCH (21:00)
[2018-04-30] VITALS (25 sets, daily range): BP systolic 99–190; BP diastolic 46–115
[2018-04-30] MEDS: piperacillin/tazo 3.375gm/50ml 50 ML IV SCH ×3 (00:28→16:33)
[2018-04-30] MEDS: propofol 1000mg/100ml bottle 100 ML IV PRN (00:56)
[2018-04-30] MEDS: methylPREDNISolone sod succ/PF 40mg inj. IV SCH ×3 (02:51→21:32)
[2018-04-30] MEDS: FENTANYL-0.9 % NACL/PF 100 ML IV PRN ×2 (02:51→12:35)
[2018-04-30] MEDS: ipratropium/albuterol 3ml nebule NEB SCH ×5 (03:07→19:42)
[2018-04-30 05:26] LABS: ABG BASE EXCESS 2.5 mmol/L (-2.0-3.0); ABG HCO3 27.8 mmol/L (22.0-26.0); ABG OXYGEN SATURATION 94.8 % (95-98); ABG PCO2 (T) 46.4 mmHg (32.0-45.0); ABG PH (T) 7.396 (7.350-7.450); ABG PO2 (T) 73.9 mmHg (83-108); ALLEN'S TEST Positive; FCOHb 0.3 % (0.5-1.5); FMetHb 0.2 % (0.3-1.12); FO2Hb 94.3 % (94-100); MINUTE VOLUME 9 L/min; PEEP 5 cm H2O; RESPIRATORY RATE 22 b/min; RESPIRATORY RATE (OBSERVED) 22 b/min; TIDAL VOLUME 400 mL; TOTAL HEMOGLOBIN 10.2 G/dl (12.0-16.0)
[2018-04-30 05:50] LABS: HEMATOCRIT 28.4 % (35.0-45.0); HEMOGLOBIN 9.5 g/dl (12.0-16.0); MEAN CORPUSCULAR HEMOGLOBIN 31.8 PG (27.0-31.0); MEAN CORPUSCULAR HGB CONC 33.6 % (33.0-36.5); MEAN CORPUSCULAR VOLUME 94.6 FL (78-98); MEAN PLATELET VOLUME 7.1 FL (7.4-10.4); PLATELET COUNT 237 X10'3 (140-440); RED CELL DISTRIBUTION WIDTH 16.2 % (11.5-14.5); WHITE BLOOD COUNT 21.2 X10'3 (4.5-11.0)
[2018-04-30 06:06] LABS: INR 1.1 INR; PARTIAL THROMBOPLASTIN TIME 32 SECONDS (22-32); PROTHROMBIN TIME 11.8 SECONDS (9.0-12.0)
[2018-04-30 06:26] LABS: ALANINE AMINOTRANSFERASE 25 U/L (12-78); ALBUMIN 2.3 G/DL (3.4-5.0); ALBUMIN/GLOBULIN RATIO 0.7 (1.1-1.5); ALKALINE PHOSPHATASE 66 IU/L (46-116); ANION GAP 6 (8-16); ASPARTATE AMINO TRANSFERASE 15 U/L (10-37); BILIRUBIN,TOTAL 0.3 MG/DL (0.1-1.0); BLOOD UREA NITROGEN 12 MG/DL (7-18); BUN/CREATININE RATIO 21.8 (6.6-38.0); CALCIUM 8.4 MG/DL (8.5-10.1); CHLORIDE 104 MMOL/L (99-107); CREATININE 0.55 MG/DL (0.40-0.90); GLUCOSE 144 MG/DL (70-104); MAGNESIUM 1.6 MG/DL (1.5-2.4); PHOSPHORUS 2.4 MG/DL (2.3-4.5); POTASSIUM 3.5 MMOL/L (3.5-5.1); SODIUM 140 MMOL/L (135-145); TOTAL CARBON DIOXIDE 30.2 MMOL/L (24-32); TOTAL PROTEIN 5.6 G/DL (6.4-8.2); eGFR > 90 ML/MIN
[2018-04-30] MEDS: normal saline 1000ml 1,000 ML IV SCH ×2 (07:01→21:35)
[2018-04-30] MEDS: pantoprazole 40 MG vial IV SCH (07:26)
[2018-04-30] MEDS: docusate sodium 100mg/10ml UD cup PO SCH ×2 (07:26→20:00)
[2018-04-30] MEDS: CefTRIAXone/D5W-Rocephin 1gm 50 ML IV SCH ×2 (07:26→21:34)
[2018-04-30] MEDS: ascorbic acid 500mg tablet PO SCH (07:27)
[2018-04-30] MEDS: enoxaparin 40mg/0.4ml syringe SUBCUT SCH (07:28)
[2018-04-30] MEDS: ferrous sulfate 325mg tablet PO SCH (07:28)
[2018-04-30] MEDS: mineral oil/petrolatum ophthal oint EACHEYE SCH ×3 (07:28→20:00)
[2018-04-30] MEDS: K and/or MAG REPLACEMENT MC SCH (07:34)
[2018-04-30 08:48] LABS: TOTAL CELLS COUNTED 100
[2018-04-30 08:49] LABS: ANISOCYTOSIS 1+; PLATELET ESTIMATE NORMAL; POIKILOCYTOSIS 1+
[2018-04-30] MEDS ORDERED: acetaminophen 325mg tablet PO PRN (15:35)
[2018-04-30] MEDS ORDERED: non-formulary drug (Albuterol Sulfate Nebs* (Proventil Nebs*) 2.5 MG) IH PRN (15:35)
[2018-04-30] MEDS ORDERED: TIOTROPIUM BROMIDE PRN (15:35)
[2018-04-30] MEDS ORDERED: [UNRECOGNIZED DRUG - OTHER] PO PRN (15:35)
[2018-04-30] MEDS ORDERED: labetalol 100mg tablet PO ONE (16:20)
[2018-04-30] MEDS ORDERED: morphine ER 30mg tablet PO ONE (16:30)
[2018-04-30] MEDS: clonazePAM 0.5mg tablet PO PRN (16:34)
[2018-04-30] MEDS ORDERED: labetalol 20mg/4ml (5mg/ml) syringe IV ONE (17:35)
[2018-04-30] MEDS: HYDROcodone/acetaminophen 10/325mg tab PO PRN (18:40)
[2018-04-30] MEDS: insulin glargine (Lantus) pen - multi-dose SQ SCH (21:00)
[2018-04-30] MEDS: labetalol 100mg tablet PO SCH (21:33)
[2018-04-30] MEDS: lactobacillus rhamnosus 10,000 MMU CELLS/CAPSULE PO SCH (21:33)
[2018-04-30] MEDS: morphine ER 30mg tablet PO SCH (21:33)
[2018-05-01] VITALS (24 sets, daily range): BP systolic 124–193; BP diastolic 70–113
[2018-05-01] MEDS: ipratropium/albuterol 3ml nebule NEB SCH ×7 (00:03→22:56)
[2018-05-01] MEDS: mineral oil/petrolatum ophthal oint EACHEYE SCH ×5 (00:28→21:27)
[2018-05-01] MEDS: piperacillin/tazo 3.375gm/50ml 50 ML IV SCH ×4 (00:28→23:35)
[2018-05-01] MEDS: clonazePAM 0.5mg tablet PO PRN ×4 (02:00→23:36)
[2018-05-01 06:31] LABS: INR 0.9 INR; PARTIAL THROMBOPLASTIN TIME 30 SECONDS (22-32); PROTHROMBIN TIME 9.7 SECONDS (9.0-12.0)
[2018-05-01 06:35] LABS: HEMATOCRIT 28.2 % (35.0-45.0); HEMOGLOBIN 9.5 g/dl (12.0-16.0); MEAN CORPUSCULAR HGB CONC 33.7 % (33.0-36.5); MEAN CORPUSCULAR VOLUME 94.7 FL (78-98); MEAN PLATELET VOLUME 7.4 FL (7.4-10.4); PLATELET COUNT 265 X10'3 (140-440); RED BLOOD COUNT 2.98 X10'6 (4.20-5.60); RED CELL DISTRIBUTION WIDTH 15.6 % (11.5-14.5); WHITE BLOOD COUNT 21.8 X10'3 (4.5-11.0)
[2018-05-01 07:07] LABS: ALANINE AMINOTRANSFERASE 27 U/L (12-78); ALBUMIN 2.4 G/DL (3.4-5.0); ALBUMIN/GLOBULIN RATIO 0.6 (1.1-1.5); ALKALINE PHOSPHATASE 69 IU/L (46-116); ANION GAP 4 (8-16); ASPARTATE AMINO TRANSFERASE 15 U/L (10-37); BILIRUBIN,TOTAL 0.2 MG/DL (0.1-1.0); BLOOD UREA NITROGEN 17 MG/DL (7-18); BUN/CREATININE RATIO 36.2 (6.6-38.0); CALCIUM 9.2 MG/DL (8.5-10.1); CHLORIDE 105 MMOL/L (99-107); CREATININE 0.47 MG/DL (0.40-0.90); GLUCOSE 126 MG/DL (70-104); MAGNESIUM 2.1 MG/DL (1.5-2.4); PHOSPHORUS 2.7 MG/DL (2.3-4.5); POTASSIUM 3.8 MMOL/L (3.5-5.1); SODIUM 141 MMOL/L (135-145); TOTAL CARBON DIOXIDE 31.9 MMOL/L (24-32); TOTAL PROTEIN 6.3 G/DL (6.4-8.2); eGFR > 90 ML/MIN
[2018-05-01] MEDS: K and/or MAG REPLACEMENT MC SCH (08:00)
[2018-05-01] MEDS ORDERED: non-formulary drug (Omeprazole (Prilosec) 1 CAP) PO SCH (08:00)
[2018-05-01] MEDS ORDERED: enoxaparin 40mg/0.4ml syringe SUBCUT SCH (08:00)
[2018-05-01 08:11] LABS: TOTAL CELLS COUNTED 100
[2018-05-01 08:13] LABS: ANISOCYTOSIS 1+; PLATELET ESTIMATE NORMAL
[2018-05-01 08:14] LABS: HYPOCHROMASIA 1+; POLYCHROMASIA 1+; TOXIC GRANULATION 1+
[2018-05-01] MEDS: methylPREDNISolone sod succ/PF 40mg inj. IV SCH ×2 (08:17→19:18)
[2018-05-01] MEDS: lactobacillus rhamnosus 10,000 MMU CELLS/CAPSULE PO SCH ×2 (08:18→19:19)
[2018-05-01] MEDS: pantoprazole 40 MG vial IV SCH (08:37)
[2018-05-01] MEDS: labetalol 100mg tablet PO SCH ×2 (08:37→19:19)
[2018-05-01] MEDS: CefTRIAXone/D5W-Rocephin 1gm 50 ML IV SCH ×2 (08:37→19:20)
[2018-05-01] MEDS: multivitamins, therapeutics tablet PO SCH (08:37)
[2018-05-01] MEDS: docusate sodium 100mg/10ml UD cup PO SCH ×2 (08:38→19:26)
[2018-05-01] MEDS: ascorbic acid 500mg tablet PO SCH (08:38)
[2018-05-01] MEDS: ferrous sulfate 325mg tablet PO SCH (08:39)
[2018-05-01] MEDS: enoxaparin 40mg/0.4ml syringe SUBCUT SCH (08:39)
[2018-05-01] MEDS: polyethylene glycol 3350 17gm powd pack PO SCH (08:49)
[2018-05-01] MEDS: morphine ER 30mg tablet PO SCH ×2 (09:15→19:26)
[2018-05-01] MEDS: normal saline 1000ml 1,000 ML IV SCH (10:15)
[2018-05-01] MEDS: HYDROcodone/acetaminophen 10/325mg tab PO PRN ×2 (15:13→22:41)
[2018-05-01] MEDS: lisinopril 20mg tablet PO SCH (16:35)
[2018-05-01] MEDS: insulin glargine (Lantus) pen - multi-dose SQ SCH (21:00)
[2018-05-01] MEDS: hydrALAZINE 20mg/ml inj. IV PRN (23:36)
[2018-05-02] VITALS (17 sets, daily range): BP systolic 139–193; BP diastolic 77–106
[2018-05-02] MEDS: ipratropium/albuterol 3ml nebule NEB SCH ×6 (02:52→23:09)
[2018-05-02] MEDS: HYDROcodone/acetaminophen 10/325mg tab PO PRN ×3 (04:55→23:25)
[2018-05-02 05:57] LABS: HEMATOCRIT 30.1 % (35.0-45.0); HEMOGLOBIN 10.1 g/dl (12.0-16.0); MEAN CORPUSCULAR HEMOGLOBIN 31.6 PG (27.0-31.0); MEAN CORPUSCULAR HGB CONC 33.4 % (33.0-36.5); MEAN CORPUSCULAR VOLUME 94.6 FL (78-98); MEAN PLATELET VOLUME 7.4 FL (7.4-10.4); PLATELET COUNT 268 X10'3 (140-440); RED BLOOD COUNT 3.19 X10'6 (4.20-5.60); WHITE BLOOD COUNT 18.9 X10'3 (4.5-11.0)
[2018-05-02 06:09] LABS: INR 0.9 INR; PARTIAL THROMBOPLASTIN TIME 26 SECONDS (22-32); PROTHROMBIN TIME 9.4 SECONDS (9.0-12.0)
[2018-05-02 06:31] LABS: ALANINE AMINOTRANSFERASE 37 U/L (12-78); ALBUMIN 2.6 G/DL (3.4-5.0); ALBUMIN/GLOBULIN RATIO 0.7 (1.1-1.5); ALKALINE PHOSPHATASE 87 IU/L (46-116); ANION GAP 3 (8-16); ASPARTATE AMINO TRANSFERASE 15 U/L (10-37); BILIRUBIN,TOTAL 0.2 MG/DL (0.1-1.0); BLOOD UREA NITROGEN 19 MG/DL (7-18); BUN/CREATININE RATIO 44.2 (6.6-38.0); CALCIUM 9.2 MG/DL (8.5-10.1); CHLORIDE 105 MMOL/L (99-107); CREATININE 0.43 MG/DL (0.40-0.90); GLUCOSE 138 MG/DL (70-104); PHOSPHORUS 2.9 MG/DL (2.3-4.5); POTASSIUM 3.8 MMOL/L (3.5-5.1); SODIUM 142 MMOL/L (135-145); TOTAL CARBON DIOXIDE 33.9 MMOL/L (24-32); TOTAL PROTEIN 6.5 G/DL (6.4-8.2); eGFR > 90 ML/MIN
[2018-05-02 07:21] LABS: ANISOCYTOSIS 1+; PLATELET ESTIMATE NORMAL; POLYCHROMASIA FEW; TOTAL CELLS COUNTED 100; TOXIC GRANULATION 1+
[2018-05-02] MEDS: ascorbic acid 500mg tablet PO SCH (07:59)
[2018-05-02] MEDS: docusate sodium 100mg/10ml UD cup PO SCH ×2 (07:59→19:34)
[2018-05-02] MEDS: ferrous sulfate 325mg tablet PO SCH (07:59)
[2018-05-02] MEDS: multivitamins, therapeutics tablet PO SCH (07:59)
[2018-05-02] MEDS: lisinopril 20mg tablet PO SCH (07:59)
[2018-05-02] MEDS: labetalol 100mg tablet PO SCH (07:59)
[2018-05-02] MEDS: lactobacillus rhamnosus 10,000 MMU CELLS/CAPSULE PO SCH ×2 (07:59→19:34)
[2018-05-02] MEDS: pantoprazole 40 MG vial IV SCH (08:00)
[2018-05-02] MEDS: enoxaparin 40mg/0.4ml syringe SUBCUT SCH (08:00)
[2018-05-02] MEDS: mineral oil/petrolatum ophthal oint EACHEYE SCH ×3 (08:00→19:35)
[2018-05-02] MEDS: polyethylene glycol 3350 17gm powd pack PO SCH (08:00)
[2018-05-02] MEDS: methylPREDNISolone sod succ/PF 40mg inj. IV SCH ×2 (08:00→19:34)
[2018-05-02] MEDS: piperacillin/tazo 3.375gm/50ml 50 ML IV SCH (08:00)
[2018-05-02] MEDS: morphine ER 30mg tablet PO SCH ×2 (08:02→19:34)
[2018-05-02] MEDS: clonazePAM 0.5mg tablet PO PRN ×2 (08:18→17:38)
[2018-05-02] MEDS: CefTRIAXone/D5W-Rocephin 1gm 50 ML IV SCH ×2 (08:54→19:34)
[2018-05-02] MEDS: hydrALAZINE 20mg/ml inj. IV PRN (08:58)
[2018-05-02] MEDS: insulin glargine (Lantus) pen - multi-dose SQ SCH (20:01)
[2018-05-03] MEDS: mineral oil/petrolatum ophthal oint EACHEYE SCH ×3 (01:39→14:00)
[2018-05-03 03:00] VITALS: BP 181/114
[2018-05-03] MEDS: clonazePAM 0.5mg tablet PO PRN ×2 (03:22→12:24)
[2018-05-03] MEDS: ipratropium/albuterol 3ml nebule NEB SCH ×6 (03:34→23:39)
[2018-05-03] MEDS: HYDROcodone/acetaminophen 10/325mg tab PO PRN ×2 (05:24→12:27)
[2018-05-03 05:59] LABS: ALANINE AMINOTRANSFERASE 35 U/L (12-78); ALBUMIN 2.6 G/DL (3.4-5.0); ALBUMIN/GLOBULIN RATIO 0.7 (1.1-1.5); ALKALINE PHOSPHATASE 93 IU/L (46-116); ANION GAP 4 (8-16); ASPARTATE AMINO TRANSFERASE 13 U/L (10-37); BILIRUBIN,TOTAL 0.2 MG/DL (0.1-1.0); BLOOD UREA NITROGEN 20 MG/DL (7-18); BUN/CREATININE RATIO 37.7 (6.6-38.0); CALCIUM 9.2 MG/DL (8.5-10.1); CHLORIDE 102 MMOL/L (99-107); CREATININE 0.53 MG/DL (0.40-0.90); GLUCOSE 148 MG/DL (70-104); MAGNESIUM 1.8 MG/DL (1.5-2.4); PHOSPHORUS 2.9 MG/DL (2.3-4.5); POTASSIUM 3.5 MMOL/L (3.5-5.1); PREALBUMIN 18.9 MG/DL (19-36); SODIUM 142 MMOL/L (135-145); TOTAL CARBON DIOXIDE 36.5 MMOL/L (24-32); TOTAL PROTEIN 6.3 G/DL (6.4-8.2); eGFR > 90 ML/MIN
[2018-05-03 06:51] LABS: HEMATOCRIT 32.3 % (35.0-45.0); HEMOGLOBIN 10.9 g/dl (12.0-16.0); MEAN CORPUSCULAR HEMOGLOBIN 31.7 PG (27.0-31.0); MEAN CORPUSCULAR HGB CONC 33.7 % (33.0-36.5); MEAN CORPUSCULAR VOLUME 94.2 FL (78-98); MEAN PLATELET VOLUME 7.3 FL (7.4-10.4); PLATELET COUNT 278 X10'3 (140-440); RED BLOOD COUNT 3.43 X10'6 (4.20-5.60); RED CELL DISTRIBUTION WIDTH 15.9 % (11.5-14.5); WHITE BLOOD COUNT 16.8 X10'3 (4.5-11.0)
[2018-05-03 07:00] VITALS: BP 170/109
[2018-05-03 07:13] LABS: ANISOCYTOSIS 1+; PLATELET ESTIMATE NORMAL; TOTAL CELLS COUNTED 100
[2018-05-03] MEDS: CefTRIAXone/D5W-Rocephin 1gm 50 ML IV SCH ×2 (07:53→19:59)
[2018-05-03] MEDS: ascorbic acid 500mg tablet PO SCH (07:54)
[2018-05-03] MEDS: ferrous sulfate 325mg tablet PO SCH (07:54)
[2018-05-03] MEDS: pantoprazole 40 MG vial IV SCH (07:54)
[2018-05-03] MEDS: morphine ER 30mg tablet PO SCH ×2 (07:54→20:00)
[2018-05-03] MEDS: methylPREDNISolone sod succ/PF 40mg inj. IV SCH ×2 (07:55→20:00)
[2018-05-03] MEDS: multivitamins, therapeutics tablet PO SCH (07:55)
[2018-05-03] MEDS: lisinopril 20mg tablet PO SCH (07:55)
[2018-05-03] MEDS: lactobacillus rhamnosus 10,000 MMU CELLS/CAPSULE PO SCH ×2 (07:56→20:00)
[2018-05-03] MEDS: enoxaparin 40mg/0.4ml syringe SUBCUT SCH (07:57)
[2018-05-03] MEDS: docusate sod 100mg capsule PO SCH ×2 (08:00→20:00)
[2018-05-03] MEDS: polyethylene glycol 3350 17gm powd pack PO SCH (08:00)
[2018-05-03 11:00] VITALS: BP 168/106
[2018-05-03 15:00] VITALS: BP 174/104
[2018-05-03] MEDS ORDERED: cloNIDine 0.1 mg tablet PO ONE (18:45)
[2018-05-03 19:00] VITALS: BP 181/106
[2018-05-03] MEDS: insulin glargine (Lantus) pen - multi-dose SQ SCH (21:00)
[2018-05-03 23:00] VITALS: BP 175/101
[2018-05-04] VITALS (7 sets, daily range): BP systolic 107–175; BP diastolic 70–107
[2018-05-04] MEDS: ipratropium/albuterol 3ml nebule NEB SCH ×5 (03:25→19:53)
[2018-05-04] MEDS: HYDROcodone/acetaminophen 10/325mg tab PO PRN ×2 (04:09→13:13)
[2018-05-04 05:24] LABS: HEMATOCRIT 35.3 % (35.0-45.0); HEMOGLOBIN 11.9 g/dl (12.0-16.0); MEAN CORPUSCULAR HEMOGLOBIN 31.6 PG (27.0-31.0); MEAN CORPUSCULAR HGB CONC 33.8 % (33.0-36.5); MEAN CORPUSCULAR VOLUME 93.5 FL (78-98); MEAN PLATELET VOLUME 7.1 FL (7.4-10.4); PLATELET COUNT 289 X10'3 (140-440); RED BLOOD COUNT 3.78 X10'6 (4.20-5.60); RED CELL DISTRIBUTION WIDTH 15.8 % (11.5-14.5); WHITE BLOOD COUNT 11.4 X10'3 (4.5-11.0)
[2018-05-04 05:42] LABS: ALANINE AMINOTRANSFERASE 42 U/L (12-78); ALBUMIN 2.9 G/DL (3.4-5.0); ALBUMIN/GLOBULIN RATIO 0.8 (1.1-1.5); ALKALINE PHOSPHATASE 88 IU/L (46-116); ANION GAP 4 (8-16); ASPARTATE AMINO TRANSFERASE 18 U/L (10-37); BILIRUBIN,TOTAL 0.3 MG/DL (0.1-1.0); BLOOD UREA NITROGEN 20 MG/DL (7-18); BUN/CREATININE RATIO 31.3 (6.6-38.0); CALCIUM 9.2 MG/DL (8.5-10.1); CHLORIDE 99 MMOL/L (99-107); CREATININE 0.64 MG/DL (0.40-0.90); GLUCOSE 141 MG/DL (70-104); MAGNESIUM 1.7 MG/DL (1.5-2.4); PHOSPHORUS 3.9 MG/DL (2.3-4.5); POTASSIUM 3.8 MMOL/L (3.5-5.1); SODIUM 142 MMOL/L (135-145); TOTAL CARBON DIOXIDE 39.3 MMOL/L (24-32); TOTAL PROTEIN 6.6 G/DL (6.4-8.2); eGFR > 90 ML/MIN
[2018-05-04 06:25] LABS: ANISOCYTOSIS 1+; PLATELET ESTIMATE NORMAL; TOTAL CELLS COUNTED 100
[2018-05-04] MEDS: docusate sod 100mg capsule PO SCH ×2 (06:38→07:42)
[2018-05-04] MEDS: polyethylene glycol 3350 17gm powd pack PO SCH (06:39)
[2018-05-04] MEDS: pantoprazole 40 MG vial IV SCH (07:15)
[2018-05-04] MEDS: methylPREDNISolone sod succ/PF 40mg inj. IV SCH ×2 (07:16→20:18)
[2018-05-04] MEDS: CefTRIAXone/D5W-Rocephin 1gm 50 ML IV SCH ×2 (07:17→20:18)
[2018-05-04] MEDS: enoxaparin 40mg/0.4ml syringe SUBCUT SCH (07:17)
[2018-05-04] MEDS: morphine ER 30mg tablet PO SCH ×2 (07:19→20:19)
[2018-05-04] MEDS: lisinopril 20mg tablet PO SCH (07:19)
[2018-05-04] MEDS: ascorbic acid 500mg tablet PO SCH (07:19)
[2018-05-04] MEDS: ferrous sulfate 325mg tablet PO SCH (07:19)
[2018-05-04] MEDS: cloNIDine 0.1 mg tablet PO SCH ×3 (07:20→20:19)
[2018-05-04] MEDS: lactobacillus rhamnosus 10,000 MMU CELLS/CAPSULE PO SCH ×2 (07:21→20:19)
[2018-05-04] MEDS: multivitamins, therapeutics tablet PO SCH (07:21)
[2018-05-04] MEDS: clonazePAM 0.5mg tablet PO PRN ×2 (09:35→20:34)
[2018-05-04] MEDS: insulin glargine (Lantus) pen - multi-dose SQ SCH (21:00)
[2018-05-05] MEDS: ipratropium/albuterol 3ml nebule NEB SCH ×7 (00:09→23:08)
[2018-05-05] MEDS: HYDROcodone/acetaminophen 10/325mg tab PO PRN ×3 (02:52→18:22)
[2018-05-05 03:00] VITALS: BP 155/89
[2018-05-05 03:57] LABS: HEMATOCRIT 35.3 % (35.0-45.0); HEMOGLOBIN 11.7 g/dl (12.0-16.0); MEAN CORPUSCULAR HEMOGLOBIN 31.2 PG (27.0-31.0); MEAN CORPUSCULAR VOLUME 94.5 FL (78-98); MEAN PLATELET VOLUME 7.1 FL (7.4-10.4); PLATELET COUNT 298 X10'3 (140-440); RED BLOOD COUNT 3.73 X10'6 (4.20-5.60); RED CELL DISTRIBUTION WIDTH 15.9 % (11.5-14.5); WHITE BLOOD COUNT 12.1 X10'3 (4.5-11.0)
[2018-05-05 04:13] LABS: ALANINE AMINOTRANSFERASE 41 U/L (12-78); ALBUMIN 2.8 G/DL (3.4-5.0); ALBUMIN/GLOBULIN RATIO 0.8 (1.1-1.5); ALKALINE PHOSPHATASE 90 IU/L (46-116); ANION GAP 3 (8-16); ASPARTATE AMINO TRANSFERASE 12 U/L (10-37); BILIRUBIN,TOTAL 0.2 MG/DL (0.1-1.0); BLOOD UREA NITROGEN 23 MG/DL (7-18); BUN/CREATININE RATIO 27.7 (6.6-38.0); CHLORIDE 100 MMOL/L (99-107); CREATININE 0.83 MG/DL (0.40-0.90); GLUCOSE 188 MG/DL (70-104); MAGNESIUM 1.6 MG/DL (1.5-2.4); PHOSPHORUS 3.9 MG/DL (2.3-4.5); POTASSIUM 3.9 MMOL/L (3.5-5.1); SODIUM 140 MMOL/L (135-145); TOTAL PROTEIN 6.2 G/DL (6.4-8.2); eGFR 69 ML/MIN
[2018-05-05 04:55] LABS: TOTAL CELLS COUNTED 100
[2018-05-05 04:56] LABS: ANISOCYTOSIS 1+; PLATELET ESTIMATE NORMAL; TOXIC GRANULATION 1+
[2018-05-05 06:53] VITALS: BP 156/85
[2018-05-05] MEDS: docusate sod 100mg capsule PO SCH ×2 (08:00→20:00)
[2018-05-05] MEDS: polyethylene glycol 3350 17gm powd pack PO SCH (08:00)
[2018-05-05] MEDS: lisinopril 20mg tablet PO SCH (08:34)
[2018-05-05] MEDS: CefTRIAXone/D5W-Rocephin 1gm 50 ML IV SCH ×2 (08:34→20:27)
[2018-05-05] MEDS: ferrous sulfate 325mg tablet PO SCH (08:34)
[2018-05-05] MEDS: lactobacillus rhamnosus 10,000 MMU CELLS/CAPSULE PO SCH ×2 (08:34→20:27)
[2018-05-05] MEDS: cloNIDine 0.1 mg tablet PO SCH ×3 (08:34→20:28)
[2018-05-05] MEDS: ascorbic acid 500mg tablet PO SCH (08:34)
[2018-05-05] MEDS: morphine ER 30mg tablet PO SCH ×2 (08:34→20:28)
[2018-05-05] MEDS: multivitamins, therapeutics tablet PO SCH (08:34)
[2018-05-05] MEDS: methylPREDNISolone sod succ/PF 40mg inj. IV SCH ×2 (08:35→20:30)
[2018-05-05] MEDS: pantoprazole 40 MG vial IV SCH (08:35)
[2018-05-05] MEDS: enoxaparin 40mg/0.4ml syringe SUBCUT SCH (08:36)
[2018-05-05] MEDS: clonazePAM 0.5mg tablet PO PRN ×2 (10:29→21:42)
[2018-05-05 11:00] VITALS: BP 173/89
[2018-05-05 15:00] VITALS: BP 142/89
[2018-05-05 19:15] VITALS: BP 131/71
[2018-05-05] MEDS: insulin glargine (Lantus) pen - multi-dose SQ SCH (20:35)
[2018-05-05 22:00] VITALS: BP 163/91
[2018-05-06] VITALS (9 sets, daily range): BP systolic 87–178; BP diastolic 53–105
[2018-05-06] MEDS: HYDROcodone/acetaminophen 10/325mg tab PO PRN ×3 (02:27→20:35)
[2018-05-06] MEDS: ipratropium/albuterol 3ml nebule NEB SCH ×6 (03:25→23:28)
[2018-05-06 05:07] LABS: HEMATOCRIT 33.7 % (35.0-45.0); HEMOGLOBIN 11.3 g/dl (12.0-16.0); MEAN CORPUSCULAR HEMOGLOBIN 31.3 PG (27.0-31.0); MEAN CORPUSCULAR HGB CONC 33.6 % (33.0-36.5); MEAN CORPUSCULAR VOLUME 93.3 FL (78-98); MEAN PLATELET VOLUME 7.3 FL (7.4-10.4); PLATELET COUNT 296 X10'3 (140-440); RED BLOOD COUNT 3.62 X10'6 (4.20-5.60); RED CELL DISTRIBUTION WIDTH 15.9 % (11.5-14.5); WHITE BLOOD COUNT 10.3 X10'3 (4.5-11.0)
[2018-05-06 05:29] LABS: ALANINE AMINOTRANSFERASE 34 U/L (12-78); ALBUMIN 2.6 G/DL (3.4-5.0); ALBUMIN/GLOBULIN RATIO 0.8 (1.1-1.5); ALKALINE PHOSPHATASE 81 IU/L (46-116); ANION GAP 7 (8-16); ASPARTATE AMINO TRANSFERASE 14 U/L (10-37); BILIRUBIN,TOTAL 0.2 MG/DL (0.1-1.0); BLOOD UREA NITROGEN 21 MG/DL (7-18); BUN/CREATININE RATIO 38.9 (6.6-38.0); CALCIUM 8.7 MG/DL (8.5-10.1); CHLORIDE 100 MMOL/L (99-107); CREATININE 0.54 MG/DL (0.40-0.90); GLUCOSE 137 MG/DL (70-104); MAGNESIUM 1.7 MG/DL (1.5-2.4); PHOSPHORUS 3.8 MG/DL (2.3-4.5); POTASSIUM 4.4 MMOL/L (3.5-5.1); PREALBUMIN 35.1 MG/DL (19-36); SODIUM 141 MMOL/L (135-145); TOTAL CARBON DIOXIDE 34.4 MMOL/L (24-32); eGFR > 90 ML/MIN
[2018-05-06] MEDS ORDERED: hydrALAZINE 20mg/ml inj. IV ONE (06:00)
[2018-05-06 06:27] LABS: TOTAL CELLS COUNTED 100
[2018-05-06] MEDS: clonazePAM 0.5mg tablet PO PRN ×2 (06:33→15:26)
[2018-05-06 06:34] LABS: ANISOCYTOSIS 1+; PLATELET ESTIMATE NORMAL
[2018-05-06 06:35] LABS: TOXIC GRANULATION 1+
[2018-05-06] MEDS: polyethylene glycol 3350 17gm powd pack PO SCH (08:00)
[2018-05-06] MEDS: lisinopril 20mg tablet PO SCH ×2 (08:00→08:13)
[2018-05-06] MEDS: cloNIDine 0.1 mg tablet PO SCH ×4 (08:00→20:32)
[2018-05-06] MEDS: enoxaparin 40mg/0.4ml syringe SUBCUT SCH ×2 (08:00→08:14)
[2018-05-06] MEDS: morphine ER 30mg tablet PO SCH ×4 (08:00→19:20)
[2018-05-06] MEDS: pantoprazole 40 MG vial IV SCH (08:13)
[2018-05-06] MEDS: multivitamins, therapeutics tablet PO SCH (08:13)
[2018-05-06] MEDS: docusate sod 100mg capsule PO SCH ×2 (08:13→19:20)
[2018-05-06] MEDS: ferrous sulfate 325mg tablet PO SCH (08:13)
[2018-05-06] MEDS: ascorbic acid 500mg tablet PO SCH (08:13)
[2018-05-06] MEDS: lactobacillus rhamnosus 10,000 MMU CELLS/CAPSULE PO SCH ×2 (08:13→19:20)
[2018-05-06] MEDS: methylPREDNISolone sod succ/PF 40mg inj. IV SCH ×2 (08:13→19:20)
[2018-05-06] MEDS: CefTRIAXone/D5W-Rocephin 1gm 50 ML IV SCH ×2 (08:14→19:20)
[2018-05-06] MEDS: insulin glargine (Lantus) pen - multi-dose SQ SCH (20:27)
[2018-05-07 03:00] VITALS: BP 155/88
[2018-05-07] MEDS: ipratropium/albuterol 3ml nebule NEB SCH ×4 (03:32→14:51)
[2018-05-07] MEDS: HYDROcodone/acetaminophen 10/325mg tab PO PRN ×2 (03:47→11:16)
[2018-05-07 04:51] LABS: HEMATOCRIT 33.7 % (35.0-45.0); HEMOGLOBIN 11.4 g/dl (12.0-16.0); MEAN CORPUSCULAR HEMOGLOBIN 31.8 PG (27.0-31.0); MEAN CORPUSCULAR HGB CONC 33.7 % (33.0-36.5); MEAN CORPUSCULAR VOLUME 94.4 FL (78-98); PLATELET COUNT 315 X10'3 (140-440); RED BLOOD COUNT 3.57 X10'6 (4.20-5.60); RED CELL DISTRIBUTION WIDTH 15.7 % (11.5-14.5); WHITE BLOOD COUNT 9.5 X10'3 (4.5-11.0)
[2018-05-07 05:48] LABS: ALANINE AMINOTRANSFERASE 28 U/L (12-78); ALBUMIN 2.6 G/DL (3.4-5.0); ALBUMIN/GLOBULIN RATIO 0.8 (1.1-1.5); ALKALINE PHOSPHATASE 74 IU/L (46-116); ANION GAP 6 (8-16); ASPARTATE AMINO TRANSFERASE 15 U/L (10-37); BILIRUBIN,TOTAL 0.2 MG/DL (0.1-1.0); BLOOD UREA NITROGEN 21 MG/DL (7-18); BUN/CREATININE RATIO 33.3 (6.6-38.0); CALCIUM 8.9 MG/DL (8.5-10.1); CHLORIDE 101 MMOL/L (99-107); CREATININE 0.63 MG/DL (0.40-0.90); GLUCOSE 120 MG/DL (70-104); MAGNESIUM 1.7 MG/DL (1.5-2.4); PHOSPHORUS 3.6 MG/DL (2.3-4.5); SODIUM 140 MMOL/L (135-145); TOTAL CARBON DIOXIDE 32.6 MMOL/L (24-32); TOTAL PROTEIN 5.8 G/DL (6.4-8.2); eGFR > 90 ML/MIN
[2018-05-07 06:00] VITALS: BP 172/98
[2018-05-07 07:31] LABS: ANISOCYTOSIS 1+; PLATELET ESTIMATE NORMAL; POLYCHROMASIA FEW; SCHISTOCYTES FEW; TOTAL CELLS COUNTED 100; TOXIC GRANULATION 1+
[2018-05-07] MEDS: docusate sod 100mg capsule PO SCH (08:00)
[2018-05-07] MEDS: polyethylene glycol 3350 17gm powd pack PO SCH (08:00)
[2018-05-07] MEDS: ascorbic acid 500mg tablet PO SCH (08:15)
[2018-05-07] MEDS: lisinopril 20mg tablet PO SCH (08:16)
[2018-05-07] MEDS: cloNIDine 0.1 mg tablet PO SCH ×2 (08:16→13:52)
[2018-05-07] MEDS: ferrous sulfate 325mg tablet PO SCH (08:16)
[2018-05-07] MEDS: lactobacillus rhamnosus 10,000 MMU CELLS/CAPSULE PO SCH (08:16)
[2018-05-07] MEDS: morphine ER 30mg tablet PO SCH (08:16)
[2018-05-07] MEDS: multivitamins, therapeutics tablet PO SCH (08:16)
[2018-05-07] MEDS: CefTRIAXone/D5W-Rocephin 1gm 50 ML IV SCH (08:18)
[2018-05-07] MEDS: methylPREDNISolone sod succ/PF 40mg inj. IV SCH (08:19)
[2018-05-07] MEDS: pantoprazole 40 MG vial IV SCH (08:19)
[2018-05-07] MEDS: enoxaparin 40mg/0.4ml syringe SUBCUT SCH (08:24)
[2018-05-07] MEDS: clonazePAM 0.5mg tablet PO PRN ×2 (08:29)
[2018-05-07 11:00] VITALS: BP 142/90
[2018-05-07] MEDS ORDERED: LEVO500T2 PO (11:52)
[2018-05-07] MEDS ORDERED: LISI-600 PO (11:52)
[2018-05-07] MEDS ORDERED: CLON0.1T20 PO (11:52)
[2018-05-07] MEDS ORDERED: LACT1CAP26 PO (11:52)
[2018-05-07 15:00] VITALS: BP 118/64
== END 2018-05-07 16:19 | disposition home or self-care (01) | DRG 871 ==
LOC: ER 01:56 → ED HOLD 04:21 → CICU 2S 05:26 → PCU 3S 05-02 14:33
PROVIDERS: ATTEND Internal Medicine Critical Care Medicine
PROC: 5A1945Z Respiratory Ventilation, 24-96 Consecutive Hours (ICD-10-PCS; principal; 2018-04-29)
PROC: 0BH18EZ Insertion of Endotracheal Airway into Trachea, Via Natural or Artificial Opening Endoscopic (ICD-10-PCS; 2018-04-29)
DX: A41.9 Sepsis, unspecified organism (principal); J96.01 Acute respiratory failure with hypoxia; J13 Pneumonia due to Streptococcus pneumoniae; J96.02 Acute respiratory failure with hypercapnia; J44.1 Chronic obstructive pulmonary disease with (acute) exacerbation; Z68.1 Body mass index [BMI] 19.9 or less, adult; J44.0 Chronic obstructive pulmonary disease with (acute) lower respiratory infection; E78.00 Pure hypercholesterolemia, unspecified; Z60.2 Problems related to living alone; I10 Essential (primary) hypertension; F41.9 Anxiety disorder, unspecified; F32.9 Major depressive disorder, single episode, unspecified; G89.29 Other chronic pain; M54.9 Dorsalgia, unspecified; K21.9 Gastro-esophageal reflux disease without esophagitis; Z87.891 Personal history of nicotine dependence; Z56.0 Unemployment, unspecified; Z90.49 Acquired absence of other specified parts of digestive tract; Z79.899 Other long term (current) drug therapy
CPT/HCPCS: 36415; 36600; 71045; 80053; 80305; 81001; 82803; 82948; 83036; 83605; 83735; 83880; 84100; 84134; 84145; 84484; 85018; 85025; 85610; 85730; 87040; 87070; 87077; 87186; 93005; 94002; 94003; 94640; 94760; 96374; 96375; 97110; 97116; 97161; 97530; 99291; A6212; A6213; A6250; A6258; A7015; C9113; J0330; J0360; J0456; J0696; J1650; J1815; J2250; J2543; J2704; J2920; J2930; J3490; J7030; P9047

== ENCOUNTER 2018-06-15 18:24 | Inpatient (IN) | payer MEDICARE, MEDICAID ==
[~2018-06-15] VITALS: Ht 170.2 cm; Wt 56.8 kg
[~2018-06-15 18:24] MED LIST changes: +0.9 % SODIUM CHLORIDE 10 ML VIAL ONE; +ALB0.5UD IH; +ASCO500C15 PO; +CLON0.1T20 PO; +CLON0.5T23 PO; -DOCU283E2 RC; +FERR325T28 PO; +HYDR-4353 PO; -HYDR-565 PO; +INSU100C10 SQ; -INSU100V5 IJ; +INSU100V9 SQ; -LEVO500T2 PO; +LISI-600 PO; -METH125V10 IV; -MORP15TA60 PO; +MORP30TA60 PO; +MULT-1085 PO; +OMEP40CA37 PO; -PANT-47 PO; -PANT40VI2 PO; +POLY17PO10 PO; +PRED5TAB PO; +TIOT18CA3; +[UNRECOGNIZED DRUG - CODE] PO; +etomidate 2mg/ml inj. ONE
[2018-06-15] MEDS ORDERED: normal saline 1000ML IV soln IVB ONE ×3 (18:50→19:40)
[2018-06-15] MEDS ORDERED: LORazepam 2 mg/ml vial IV ONE (18:50)
[2018-06-15 18:58] LABS: BASOPHILS % (AUTO) 0.1 % (0-1); EOSINOPHILS # (AUTO) 0.5 X10'3 (0-0.9); EOSINOPHILS % (AUTO) 2.5 % (0-6); HEMATOCRIT 39.4 % (35.0-45.0); HEMOGLOBIN 12.9 g/dl (12.0-16.0); LYMPHOCYTES # (AUTO) 4.1 X10'3 (1.1-4.8); LYMPHOCYTES % (AUTO) 22.7 % (21-51); MEAN CORPUSCULAR HEMOGLOBIN 30.7 PG (27.0-31.0); MEAN CORPUSCULAR HGB CONC 32.9 % (33.0-36.5); MEAN CORPUSCULAR VOLUME 93.4 FL (78-98); MEAN PLATELET VOLUME 7.2 FL (7.4-10.4); MONOCYTES # (AUTO) 0.4 X10'3 (0-0.9); MONOCYTES % (AUTO) 2.4 % (2-12); NEUTROPHILS # (AUTO) 13.1 X10'3 (1.8-7.7); NEUTROPHILS % (AUTO) 72.3 % (42-75); PLATELET COUNT 445 X10'3 (140-440); RED BLOOD COUNT 4.22 X10'6 (4.20-5.60); RED CELL DISTRIBUTION WIDTH 15.9 % (11.5-14.5); WHITE BLOOD COUNT 18.1 X10'3 (4.5-11.0)
[2018-06-15 19:06] LABS: ALANINE AMINOTRANSFERASE 15 U/L (12-78); ALBUMIN 3.2 G/DL (3.4-5.0); ALBUMIN/GLOBULIN RATIO 0.7 (1.1-1.5); ALKALINE PHOSPHATASE 77 IU/L (46-116); ANION GAP 15 (8-16); ASPARTATE AMINO TRANSFERASE 25 U/L (10-37); BILIRUBIN,TOTAL 0.2 MG/DL (0.1-1.0); BLOOD UREA NITROGEN 12 MG/DL (7-18); CALCIUM 8.9 MG/DL (8.5-10.1); CHLORIDE 97 MMOL/L (99-107); CREATININE 0.92 MG/DL (0.40-0.90); GLUCOSE 297 MG/DL (70-104); POTASSIUM 4.3 MMOL/L (3.5-5.1); SODIUM 137 MMOL/L (135-145); TOTAL CARBON DIOXIDE 25.5 MMOL/L (24-32); TOTAL PROTEIN 7.5 G/DL (6.4-8.2); eGFR 62 ML/MIN
[2018-06-15 19:15] LABS: ETHANOL < 0.010 GM/DL (0.0-0.010); MAGNESIUM 1.6 MG/DL (1.5-2.4)
[2018-06-15 19:18] LABS: PARTIAL THROMBOPLASTIN TIME 28 SECONDS (22-32); PROTHROMBIN TIME 10.7 SECONDS (9.0-12.0)
[2018-06-15 19:51] LABS: CLARITY,URINE CLEAR (Clear); COLOR,URINE YELLOW (Yellow); GLUCOSE, URINE 500 mg/dl (Neg); KETONES,URINE 15 mg/dl (Neg); LEUKOCYTE ESTERASE ,URINE NEGATIVE (Neg); NITRITES, URINE NEGATIVE (Neg); OCCULT BLOOD,URINE MODERATE (Neg); PH,URINE 5.5 (4.8-8.0); PROTEIN,URINE 100 mg/dl (Neg); UROBILINOGEN,URINE 0.2 E.U/dL (0.2-1.0)
[2018-06-15 20:07] LABS: URINE AMPHETAMINE SCREEN NEGATIVE (Neg); URINE BARBITUATE SCREEN NEGATIVE (Neg); URINE BENZODIAZEPINES SCREEN NEGATIVE (Neg); URINE CANNABINOID SCREEN NEGATIVE (Neg); URINE COCAINE SCREEN NEGATIVE (Neg); URINE METHADONE SCREEN NEGATIVE (Neg); URINE OPIATE SCREEN POSITIVE (Neg); URINE PHENCYCLIDINE SCREEN NEGATIVE (Neg)
[2018-06-15 20:10] LABS: UA COLLECTION TYPE STRAIGHT CATH; WBC,URINE NONE SEEN /HPF (0-4)
[2018-06-15 20:11] LABS: AMORPHOUS URATES 2+; BACTERIA,URINE NONE SEEN /HPF (Neg); SQUAMOUS EPITHELIAL CELL,UR NONE SEEN /LPF (FEW)
[2018-06-15 20:31] LABS: ABG BASE EXCESS 0.2 mmol/L (-2.0-3.0); ABG HCO3 35.4 mmol/L (22.0-26.0); ABG OXYGEN SATURATION 94.2 % (95-98); ABG PCO2 (T) 148.8 mmHg (32.0-45.0); ABG PH (T) 6.992 (7.350-7.450); ABG PO2 (T) 101.3 mmHg (83-108); ALLEN'S TEST Positive; FCOHb 0.4 % (0.5-1.5); FLOW 10 L/min; FMetHb 0.2 % (0.3-1.12); FO2Hb 93.6 % (94-100); PATIENT TEMPERATURE 36.6; RESPIRATORY RATE (OBSERVED) 20 b/min; TOTAL HEMOGLOBIN 12.2 G/dl (12.0-16.0)
[2018-06-15] MEDS ORDERED: INSU100I31 SQ (20:57)
[2018-06-15] MEDS ORDERED: ALBU18HF2 PO (20:57)
[2018-06-15] MEDS ORDERED: CLON0.2T PO (20:57)
[2018-06-15] MEDS ORDERED: LISI40TA4 PO (20:57)
[2018-06-15] MEDS ORDERED: HYDR-3973 PO (20:57)
[2018-06-15] MEDS ORDERED: CLON0.5T12 PO (20:57)
[2018-06-15 21:21] LABS: ABG BASE EXCESS 1.5 mmol/L (-2.0-3.0); ABG HCO3 36.5 mmol/L (22.0-26.0); ABG OXYGEN SATURATION 96.1 % (95-98); ABG PCO2 (T) 143.1 mmHg (32.0-45.0); ABG PH (T) 7.024 (7.350-7.450); ABG PO2 (T) 114.5 mmHg (83-108); ALLEN'S TEST Positive; FCOHb 0.3 % (0.5-1.5); FMetHb 0.1 % (0.3-1.12); FO2Hb 95.7 % (94-100); MINUTE VOLUME 8 L/min; PATIENT TEMPERATURE 36.9; RESPIRATORY RATE 18 b/min; RESPIRATORY RATE (OBSERVED) 19 b/min; TOTAL HEMOGLOBIN 12.9 G/dl (12.0-16.0)
[2018-06-15] MEDS ORDERED: propofol 1000mg/100ml bottle 100 ML IV ONE (21:25)
[2018-06-15] MEDS ORDERED: succinylcholine 20mg/ml inj IV ONE ×2 (21:27→21:35)
[2018-06-15] MEDS ORDERED: etomidate 2mg/ml inj. IV ONE (21:35)
[2018-06-15] MEDS: K, MAG and/or Phos replacement - Verify level? MC SCH (21:45)
[2018-06-15] MEDS ORDERED: potassium Cl 20 mEq SR tablet PO PRN ×2 (21:45)
[2018-06-15] MEDS ORDERED: potassium Cl 40MEQ/NS 500ml 500 ML IV PRN (21:45)
[2018-06-15] MEDS ORDERED: acetaminophen 325mg tablet PO PRN (21:45)
[2018-06-15] MEDS ORDERED: levetiracetam inj 500 MG in normal saline 100ml IV soln 95 ML IV ONE ×2 (22:00→22:20)
[2018-06-15] MEDS ORDERED: normal saline 500ml IV soln 1,000 ML IV ONE (22:25)
[2018-06-15] MEDS: midazolam 100mg in NS 100ml 100 ML IV PRN (22:28)
[2018-06-15] MEDS: FENTANYL-0.9 % NACL/PF 100 ML IV PRN (22:29)
[2018-06-15 23:26] LABS: ABG BASE EXCESS 6.4 mmol/L (-2.0-3.0); ABG OXYGEN SATURATION 98.7 % (95-98); ABG PH (T) 7.386 (7.350-7.450); ABG PO2 (T) 159.1 mmHg (83-108); ALLEN'S TEST Positive; FCOHb 0.3 % (0.5-1.5); FMetHb 0.1 % (0.3-1.12); FO2Hb 98.3 % (94-100); MINUTE VOLUME 9 L/min; PATIENT TEMPERATURE 36.6; PEEP 5 cm H2O; RESPIRATORY RATE 20 b/min; RESPIRATORY RATE (OBSERVED) 20 b/min; TIDAL VOLUME 400 mL
[2018-06-15] MEDS: ipratropium/albuterol 3ml nebule NEB PRN (23:40)
[2018-06-16] VITALS (23 sets, daily range): BP systolic 90–184; BP diastolic 53–99
[2018-06-16] MEDS: normal saline 1000ml 1,000 ML IV SCH ×3 (00:22→21:42)
[2018-06-16] MEDS: ipratropium/albuterol 3ml nebule NEB PRN (03:10)
[2018-06-16] MEDS: acetaminophen 325mg tablet PO PRN ×3 (04:44→21:40)
[2018-06-16 05:17] LABS: HEMATOCRIT 35.9 % (35.0-45.0); MEAN CORPUSCULAR HEMOGLOBIN 31.1 PG (27.0-31.0); MEAN CORPUSCULAR HGB CONC 33.5 % (33.0-36.5); MEAN CORPUSCULAR VOLUME 92.9 FL (78-98); MEAN PLATELET VOLUME 7.1 FL (7.4-10.4); PLATELET COUNT 341 X10'3 (140-440); RED BLOOD COUNT 3.87 X10'6 (4.20-5.60); RED CELL DISTRIBUTION WIDTH 16.2 % (11.5-14.5)
[2018-06-16 05:53] LABS: ALANINE AMINOTRANSFERASE 12 U/L (12-78); ALBUMIN 2.9 G/DL (3.4-5.0); ALBUMIN/GLOBULIN RATIO 0.8 (1.1-1.5); ALKALINE PHOSPHATASE 65 IU/L (46-116); ANION GAP 8 (8-16); ASPARTATE AMINO TRANSFERASE 19 U/L (10-37); BILIRUBIN,TOTAL 0.3 MG/DL (0.1-1.0); BLOOD UREA NITROGEN 9 MG/DL (7-18); BUN/CREATININE RATIO 21.4 (6.6-38.0); CALCIUM 8.1 MG/DL (8.5-10.1); CHLORIDE 100 MMOL/L (99-107); CREATININE 0.42 MG/DL (0.40-0.90); GLUCOSE 75 MG/DL (70-104); MAGNESIUM 1.5 MG/DL (1.5-2.4); PHOSPHORUS 2.5 MG/DL (2.3-4.5); SODIUM 141 MMOL/L (135-145); TOTAL CARBON DIOXIDE 32.8 MMOL/L (24-32); TOTAL PROTEIN 6.7 G/DL (6.4-8.2); eGFR > 90 ML/MIN
[2018-06-16 05:56] LABS: ABG BASE EXCESS 6.5 mmol/L (-2.0-3.0); ABG HCO3 31.1 mmol/L (22.0-26.0); ABG OXYGEN SATURATION 97.1 % (95-98); ABG PCO2 (T) 47.4 mmHg (32.0-45.0); ABG PO2 (T) 96.6 mmHg (83-108); ALLEN'S TEST Positive; FCOHb 0.1 % (0.5-1.5); FMetHb 0.1 % (0.3-1.12); FO2Hb 96.9 % (94-100); MINUTE VOLUME 12 L/min; PATIENT TEMPERATURE 38.3; PEEP 5 cm H2O; RESPIRATORY RATE 20 b/min; RESPIRATORY RATE (OBSERVED) 24 b/min; TIDAL VOLUME 400 mL; TOTAL HEMOGLOBIN 12.3 G/dl (12.0-16.0)
[2018-06-16 06:35] LABS: LYMPHOCYTES % (MANUAL) 17 % (21-51); NEUTROPHILS % (MANUAL) 75 % (42-75); TOTAL CELLS COUNTED 100
[2018-06-16 06:36] LABS: ANISOCYTOSIS 1+; EOSINOPHILS % (MANUAL) 1 % (0-6); MONOCYTES % (MANUAL) 7 % (2-12); PLATELET ESTIMATE NORMAL
[2018-06-16] MEDS: pantoprazole 40 MG vial IV SCH (07:21)
[2018-06-16] MEDS: enoxaparin 40mg/0.4ml syringe SUBCUT SCH (07:22)
[2018-06-16] MEDS: potassium Cl 40MEQ/NS 500ml 500 ML IV PRN (07:22)
[2018-06-16] MEDS: K, MAG and/or Phos replacement - Verify level? MC SCH (07:29)
[2018-06-16] MEDS ORDERED: levetiracetam inj 500 MG in normal saline 100ml IV soln 95 ML IV SCH (08:00)
[2018-06-16] MEDS: cloNIDine 0.1 mg tablet PO SCH ×3 (08:22→21:37)
[2018-06-16] MEDS ORDERED: albuterol 2.5 MG/3 ML nebule NEB PRN (10:15)
[2018-06-16] MEDS: clonazePAM 0.5mg tablet PO SCH ×2 (13:00→21:38)
[2018-06-16] MEDS ORDERED: CLONIDINE HCL PO SCH (13:00)
[2018-06-16] MEDS ORDERED: vancomycin/NS 1 GM ADD-VANTAGE 250 ML X 1 DOSE IV ONE (15:35)
[2018-06-16] MEDS: FENTANYL-0.9 % NACL/PF 100 ML IV PRN (15:41)
[2018-06-16] MEDS: VANCOMYCIN 750MG IV in NS 250 ML IV SCH (16:00)
[2018-06-16] MEDS: midazolam 100mg in NS 100ml 100 ML IV PRN (23:31)
[2018-06-17] VITALS (24 sets, daily range): BP systolic 116–204; BP diastolic 66–110
[2018-06-17] MEDS ORDERED: normal saline 500ml IV soln 500 ML IV ONE (00:15)
[2018-06-17] MEDS: mineral oil/petrolatum ophthal oint EACHEYE SCH ×4 (02:19→20:00)
[2018-06-17] MEDS: normal saline 1000ml 1,000 ML IV SCH ×2 (02:47→20:21)
[2018-06-17] MEDS: VANCOMYCIN 750MG IV in NS 250 ML IV SCH ×2 (03:32→16:11)
[2018-06-17 04:26] LABS: BASOPHILS % (AUTO) 0 % (0-1); EOSINOPHILS # (AUTO) 0.1 X10'3 (0-0.9); EOSINOPHILS % (AUTO) 1.3 % (0-6); HEMATOCRIT 29.9 % (35.0-45.0); LYMPHOCYTES # (AUTO) 1.3 X10'3 (1.1-4.8); LYMPHOCYTES % (AUTO) 12.2 % (21-51); MEAN CORPUSCULAR HEMOGLOBIN 30.9 PG (27.0-31.0); MEAN CORPUSCULAR HGB CONC 33.3 % (33.0-36.5); MEAN CORPUSCULAR VOLUME 92.8 FL (78-98); MEAN PLATELET VOLUME 7.2 FL (7.4-10.4); MONOCYTES # (AUTO) 0.8 X10'3 (0-0.9); MONOCYTES % (AUTO) 7.4 % (2-12); NEUTROPHILS # (AUTO) 8.5 X10'3 (1.8-7.7); NEUTROPHILS % (AUTO) 79.1 % (42-75); PLATELET COUNT 275 X10'3 (140-440); RED BLOOD COUNT 3.22 X10'6 (4.20-5.60); RED CELL DISTRIBUTION WIDTH 16.1 % (11.5-14.5); WHITE BLOOD COUNT 10.7 X10'3 (4.5-11.0)
[2018-06-17 04:48] LABS: ALANINE AMINOTRANSFERASE 10 U/L (12-78); ALBUMIN 2.5 G/DL (3.4-5.0); ALBUMIN/GLOBULIN RATIO 0.8 (1.1-1.5); ALKALINE PHOSPHATASE 55 IU/L (46-116); ANION GAP 11 (8-16); ASPARTATE AMINO TRANSFERASE 14 U/L (10-37); BILIRUBIN,TOTAL 0.3 MG/DL (0.1-1.0); BLOOD UREA NITROGEN 8 MG/DL (7-18); BUN/CREATININE RATIO 18.6 (6.6-38.0); CALCIUM 7.8 MG/DL (8.5-10.1); CHLORIDE 102 MMOL/L (99-107); CREATININE 0.43 MG/DL (0.40-0.90); GLUCOSE 74 MG/DL (70-104); MAGNESIUM 1.3 MG/DL (1.5-2.4); PHOSPHORUS 2.5 MG/DL (2.3-4.5); POTASSIUM 3.5 MMOL/L (3.5-5.1); SODIUM 141 MMOL/L (135-145); TOTAL CARBON DIOXIDE 28.2 MMOL/L (24-32); TOTAL PROTEIN 5.8 G/DL (6.4-8.2); eGFR > 90 ML/MIN
[2018-06-17 05:01] LABS: ABG BASE EXCESS 2.3 mmol/L (-2.0-3.0); ABG HCO3 27.1 mmol/L (22.0-26.0); ABG OXYGEN SATURATION 96.7 % (95-98); ABG PCO2 (T) 44.9 mmHg (32.0-45.0); ABG PH (T) 7.403 (7.350-7.450); ABG PO2 (T) 97.5 mmHg (83-108); ALLEN'S TEST Positive; FCOHb 0.3 % (0.5-1.5); FMetHb 0.1 % (0.3-1.12); FO2Hb 96.3 % (94-100); MINUTE VOLUME 9 L/min; PEEP 5 cm H2O; RESPIRATORY RATE 20 b/min; RESPIRATORY RATE (OBSERVED) 22 b/min; TIDAL VOLUME 400 mL; TOTAL HEMOGLOBIN 10.5 G/dl (12.0-16.0)
[2018-06-17] MEDS: pantoprazole 40 MG vial IV SCH (07:20)
[2018-06-17] MEDS: cloNIDine 0.1 mg tablet PO SCH ×3 (07:20→20:16)
[2018-06-17] MEDS: enoxaparin 40mg/0.4ml syringe SUBCUT SCH (07:21)
[2018-06-17] MEDS ORDERED: dextrose 50%-water 50ml dispensing syringe IV ONE (07:49)
[2018-06-17] MEDS: K, MAG and/or Phos replacement - Verify level? MC SCH (08:00)
[2018-06-17] MEDS: clonazePAM 0.5mg tablet PO SCH ×3 (08:00→20:16)
[2018-06-17] MEDS: HYDROcodone/acetaminophen 10/325mg tab PO PRN ×3 (12:25→23:12)
[2018-06-17] MEDS: ipratropium/albuterol 3ml nebule NEB PRN (13:49)
[2018-06-17] MEDS: ondansetron/PF 4mg/2ml inj IV PRN (19:13)
[2018-06-17] MEDS: lactobacillus rhamnosus 10,000 MMU CELLS/CAPSULE PO SCH (20:16)
[2018-06-18] VITALS (15 sets, daily range): BP systolic 109–190; BP diastolic 57–97
[2018-06-18] MEDS: ipratropium/albuterol 3ml nebule NEB PRN ×3 (01:12→19:32)
[2018-06-18] MEDS: mineral oil/petrolatum ophthal oint EACHEYE SCH ×4 (02:00→20:00)
[2018-06-18] MEDS ORDERED: VANCOMYCIN LEVEL IV ONE (03:30)
[2018-06-18] MEDS: VANCOMYCIN 750MG IV in NS 250 ML IV SCH (04:34)
[2018-06-18 06:00] LABS: BASOPHILS % (AUTO) 0.3 % (0-1); EOSINOPHILS # (AUTO) 0.1 X10'3 (0-0.9); EOSINOPHILS % (AUTO) 1.1 % (0-6); HEMATOCRIT 28.9 % (35.0-45.0); HEMOGLOBIN 9.8 g/dl (12.0-16.0); LYMPHOCYTES # (AUTO) 1.2 X10'3 (1.1-4.8); LYMPHOCYTES % (AUTO) 15.1 % (21-51); MEAN CORPUSCULAR HGB CONC 33.9 % (33.0-36.5); MEAN CORPUSCULAR VOLUME 91.4 FL (78-98); MONOCYTES # (AUTO) 0.6 X10'3 (0-0.9); MONOCYTES % (AUTO) 7.4 % (2-12); NEUTROPHILS # (AUTO) 6.3 X10'3 (1.8-7.7); NEUTROPHILS % (AUTO) 76.1 % (42-75); PLATELET COUNT 257 X10'3 (140-440); RED BLOOD COUNT 3.16 X10'6 (4.20-5.60); RED CELL DISTRIBUTION WIDTH 15.9 % (11.5-14.5); WHITE BLOOD COUNT 8.3 X10'3 (4.5-11.0)
[2018-06-18 06:14] LABS: ALANINE AMINOTRANSFERASE 10 U/L (12-78); ALBUMIN 2.7 G/DL (3.4-5.0); ALBUMIN/GLOBULIN RATIO 0.8 (1.1-1.5); ALKALINE PHOSPHATASE 54 IU/L (46-116); ANION GAP 14 (8-16); ASPARTATE AMINO TRANSFERASE 16 U/L (10-37); BILIRUBIN,TOTAL 0.4 MG/DL (0.1-1.0); BLOOD UREA NITROGEN 5 MG/DL (7-18); BUN/CREATININE RATIO 9.1 (6.6-38.0); CALCIUM 8.4 MG/DL (8.5-10.1); CHLORIDE 102 MMOL/L (99-107); CREATININE 0.55 MG/DL (0.40-0.90); GLUCOSE 75 MG/DL (70-104); MAGNESIUM 1.3 MG/DL (1.5-2.4); PHOSPHORUS 2.9 MG/DL (2.3-4.5); SODIUM 142 MMOL/L (135-145); TOTAL CARBON DIOXIDE 26.1 MMOL/L (24-32); TOTAL PROTEIN 6.1 G/DL (6.4-8.2); VANCOMYCIN,TROUGH 5.7 UG/ML (6.0-14.0); eGFR > 90 ML/MIN
[2018-06-18] MEDS: lactobacillus rhamnosus 10,000 MMU CELLS/CAPSULE PO SCH ×2 (07:08→19:35)
[2018-06-18] MEDS: cloNIDine 0.1 mg tablet PO SCH ×3 (07:08→20:39)
[2018-06-18] MEDS: losartan 25mg tablet PO SCH ×2 (07:08→19:35)
[2018-06-18] MEDS: clonazePAM 0.5mg tablet PO SCH ×3 (07:08→20:38)
[2018-06-18] MEDS: HYDROcodone/acetaminophen 10/325mg tab PO PRN ×3 (07:09→19:38)
[2018-06-18] MEDS: pantoprazole 40 MG vial IV SCH (07:10)
[2018-06-18] MEDS: enoxaparin 40mg/0.4ml syringe SUBCUT SCH (07:13)
[2018-06-18] MEDS: K, MAG and/or Phos replacement - Verify level? MC SCH (08:00)
[2018-06-18] MEDS: potassium Cl 40MEQ/NS 500ml 500 ML IV PRN (14:28)
[2018-06-18] MEDS: vancomycin inj 1,250 MG in normal saline 250ml IV soln 250 ML IV SCH (17:38)
[2018-06-19 02:00] VITALS: BP 165/90
[2018-06-19] MEDS: mineral oil/petrolatum ophthal oint EACHEYE SCH ×5 (02:00→21:19)
[2018-06-19] MEDS: HYDROcodone/acetaminophen 10/325mg tab PO PRN ×3 (02:08→19:45)
[2018-06-19] MEDS: ipratropium/albuterol 3ml nebule NEB PRN ×2 (03:32→20:12)
[2018-06-19] MEDS: vancomycin inj 1,250 MG in normal saline 250ml IV soln 250 ML IV SCH ×2 (03:48→16:30)
[2018-06-19 06:00] VITALS: BP 177/97
[2018-06-19 06:20] LABS: BASOPHILS % (AUTO) 0.1 % (0-1); EOSINOPHILS # (AUTO) 0.2 X10'3 (0-0.9); EOSINOPHILS % (AUTO) 2.1 % (0-6); HEMATOCRIT 31.8 % (35.0-45.0); HEMOGLOBIN 10.5 g/dl (12.0-16.0); LYMPHOCYTES # (AUTO) 2.1 X10'3 (1.1-4.8); LYMPHOCYTES % (AUTO) 24.8 % (21-51); MEAN CORPUSCULAR HEMOGLOBIN 30.6 PG (27.0-31.0); MEAN CORPUSCULAR VOLUME 92.6 FL (78-98); MEAN PLATELET VOLUME 7.1 FL (7.4-10.4); MONOCYTES # (AUTO) 0.6 X10'3 (0-0.9); MONOCYTES % (AUTO) 7.1 % (2-12); NEUTROPHILS # (AUTO) 5.7 X10'3 (1.8-7.7); NEUTROPHILS % (AUTO) 65.9 % (42-75); PLATELET COUNT 284 X10'3 (140-440); RED BLOOD COUNT 3.43 X10'6 (4.20-5.60); RED CELL DISTRIBUTION WIDTH 16.3 % (11.5-14.5); WHITE BLOOD COUNT 8.6 X10'3 (4.5-11.0)
[2018-06-19 06:50] LABS: ALANINE AMINOTRANSFERASE 14 U/L (12-78); ALBUMIN 2.9 G/DL (3.4-5.0); ALBUMIN/GLOBULIN RATIO 0.8 (1.1-1.5); ALKALINE PHOSPHATASE 60 IU/L (46-116); ANION GAP 8 (8-16); ASPARTATE AMINO TRANSFERASE 13 U/L (10-37); BILIRUBIN,TOTAL 0.4 MG/DL (0.1-1.0); BLOOD UREA NITROGEN 2 MG/DL (7-18); BUN/CREATININE RATIO 4.1 (6.6-38.0); CALCIUM 8.4 MG/DL (8.5-10.1); CHLORIDE 102 MMOL/L (99-107); CREATININE 0.49 MG/DL (0.40-0.90); GLUCOSE 104 MG/DL (70-104); MAGNESIUM 1.1 MG/DL (1.5-2.4); PHOSPHORUS 2.7 MG/DL (2.3-4.5); SODIUM 142 MMOL/L (135-145); TOTAL CARBON DIOXIDE 32.1 MMOL/L (24-32); TOTAL PROTEIN 6.5 G/DL (6.4-8.2); eGFR > 90 ML/MIN
[2018-06-19] MEDS: potassium Cl 40MEQ/NS 500ml 500 ML IV PRN ×2 (07:21→16:30)
[2018-06-19] MEDS: clonazePAM 0.5mg tablet PO SCH ×3 (07:22→19:45)
[2018-06-19] MEDS: losartan 25mg tablet PO SCH ×2 (07:23→19:44)
[2018-06-19] MEDS: cloNIDine 0.1 mg tablet PO SCH ×3 (07:23→19:44)
[2018-06-19] MEDS: lactobacillus rhamnosus 10,000 MMU CELLS/CAPSULE PO SCH ×2 (07:23→19:46)
[2018-06-19] MEDS: pantoprazole 40mg Tablet.DR PO SCH (07:23)
[2018-06-19] MEDS: enoxaparin 40mg/0.4ml syringe SUBCUT SCH (07:30)
[2018-06-19] MEDS: morphine 4 MG/ML inj SYRINge IV PRN ×2 (07:39→16:44)
[2018-06-19] MEDS: K, MAG and/or Phos replacement - Verify level? MC SCH (08:00)
[2018-06-19 11:00] VITALS: BP 111/78
[2018-06-19] MEDS: ondansetron/PF 4mg/2ml inj IV PRN (14:48)
[2018-06-19 15:00] VITALS: BP 145/89
[2018-06-19] MEDS ORDERED: predniSONE 5mg tablet PO ONE (17:40)
[2018-06-19 19:00] VITALS: BP 159/93
[2018-06-19] MEDS: morphine 2 MG/ML inj. syringe IV PRN (21:06)
[2018-06-19 23:00] VITALS: BP 149/91
[2018-06-20 03:00] VITALS: BP 158/95
[2018-06-20] MEDS ORDERED: VANCOMYCIN LEVEL IV NR ×2 (03:30→15:30)
[2018-06-20] MEDS: vancomycin inj 1,250 MG in normal saline 250ml IV soln 250 ML IV SCH (04:34)
[2018-06-20] MEDS: morphine 2 MG/ML inj. syringe IV PRN (05:10)
[2018-06-20 06:00] VITALS: BP 169/99
[2018-06-20 06:14] LABS: BASOPHILS % (AUTO) 0 % (0-1); EOSINOPHILS # (AUTO) 0.3 X10'3 (0-0.9); EOSINOPHILS % (AUTO) 3.7 % (0-6); HEMATOCRIT 31.6 % (35.0-45.0); HEMOGLOBIN 10.4 g/dl (12.0-16.0); LYMPHOCYTES # (AUTO) 1.9 X10'3 (1.1-4.8); LYMPHOCYTES % (AUTO) 20.5 % (21-51); MEAN PLATELET VOLUME 7.3 FL (7.4-10.4); MONOCYTES # (AUTO) 0.8 X10'3 (0-0.9); MONOCYTES % (AUTO) 8.4 % (2-12); NEUTROPHILS # (AUTO) 6.3 X10'3 (1.8-7.7); NEUTROPHILS % (AUTO) 67.4 % (42-75); PLATELET COUNT 285 X10'3 (140-440); RED BLOOD COUNT 3.36 X10'6 (4.20-5.60); WHITE BLOOD COUNT 9.4 X10'3 (4.5-11.0)
[2018-06-20 06:16] LABS: ALANINE AMINOTRANSFERASE 12 U/L (12-78); ALBUMIN 2.7 G/DL (3.4-5.0); ALBUMIN/GLOBULIN RATIO 0.8 (1.1-1.5); ALKALINE PHOSPHATASE 53 IU/L (46-116); ANION GAP 6 (8-16); ASPARTATE AMINO TRANSFERASE 11 U/L (10-37); BILIRUBIN,TOTAL 0.3 MG/DL (0.1-1.0); BLOOD UREA NITROGEN 5 MG/DL (7-18); BUN/CREATININE RATIO 9.4 (6.6-38.0); CALCIUM 8.5 MG/DL (8.5-10.1); CHLORIDE 107 MMOL/L (99-107); CREATININE 0.53 MG/DL (0.40-0.90); GLUCOSE 109 MG/DL (70-104); POTASSIUM 3.7 MMOL/L (3.5-5.1); SODIUM 146 MMOL/L (135-145); TOTAL PROTEIN 6.1 G/DL (6.4-8.2); eGFR > 90 ML/MIN
[2018-06-20 06:28] LABS: MAGNESIUM 1.2 MG/DL (1.5-2.4); PHOSPHORUS 3.6 MG/DL (2.3-4.5)
[2018-06-20 06:33] LABS: VANCOMYCIN,TROUGH 43.6 UG/ML (6.0-14.0)
[2018-06-20] MEDS: ipratropium/albuterol 3ml nebule NEB PRN (07:06)
[2018-06-20] MEDS: mineral oil/petrolatum ophthal oint EACHEYE SCH ×2 (07:32→13:54)
[2018-06-20] MEDS: pantoprazole 40mg Tablet.DR PO SCH (07:32)
[2018-06-20] MEDS: losartan 25mg tablet PO SCH (07:33)
[2018-06-20] MEDS: cloNIDine 0.1 mg tablet PO SCH ×2 (07:33→12:40)
[2018-06-20] MEDS: enoxaparin 40mg/0.4ml syringe SUBCUT SCH (07:34)
[2018-06-20] MEDS: clonazePAM 0.5mg tablet PO SCH ×2 (07:34→12:40)
[2018-06-20] MEDS: lactobacillus rhamnosus 10,000 MMU CELLS/CAPSULE PO SCH (07:34)
[2018-06-20] MEDS: HYDROcodone/acetaminophen 10/325mg tab PO PRN ×3 (07:40→17:20)
[2018-06-20] MEDS: K, MAG and/or Phos replacement - Verify level? MC SCH (08:00)
[2018-06-20] MEDS ORDERED: predniSONE 5mg tablet PO SCH (08:30)
[2018-06-20] MEDS ORDERED: magnesium Cl slow-release 64mg tablet PO ONE (09:05)
[2018-06-20] MEDS: morphine 4 MG/ML inj SYRINge IV PRN (09:15)
[2018-06-20 11:00] VITALS: BP 163/103
[2018-06-20] MEDS ORDERED: ALBU18HF2 PO (14:47)
[2018-06-20] MEDS ORDERED: PRE5T PO (14:47)
[2018-06-20 15:00] VITALS: BP 174/94
[2018-06-20] MEDS ORDERED: losartan 50mg tablet PO ONE (15:29)
[2018-06-20] MEDS ORDERED: CLON0.5T12 PO (15:49)
[2018-06-21] MEDS ORDERED: losartan 50mg tablet PO SCH (08:00)
== END 2018-06-20 18:00 | disposition home or self-care (01) | DRG 208 ==
LOC: ER 18:24 → CANBEDREQ 20:22 → ED HOLD 21:43 → ICU 2S 23:32 → PCU 3S 06-18 10:23
PROC: 5A1945Z Respiratory Ventilation, 24-96 Consecutive Hours (ICD-10-PCS; principal; 2018-06-15)
PROC: 0BH17EZ Insertion of Endotracheal Airway into Trachea, Via Natural or Artificial Opening (ICD-10-PCS; 2018-06-15)
PROC: 5A09357 Assistance with Respiratory Ventilation, Less than 24 Consecutive Hours, Continuous Positive Airway Pressure (ICD-10-PCS; 2018-06-15)
DX: J96.02 Acute respiratory failure with hypercapnia (principal); J18.9 Pneumonia, unspecified organism; E78.00 Pure hypercholesterolemia, unspecified; F17.210 Nicotine dependence, cigarettes, uncomplicated; Z60.2 Problems related to living alone; I10 Essential (primary) hypertension; G40.409 Other generalized epilepsy and epileptic syndromes, not intractable, without status epilepticus; J43.9 Emphysema, unspecified; K21.9 Gastro-esophageal reflux disease without esophagitis; F32.9 Major depressive disorder, single episode, unspecified; F41.9 Anxiety disorder, unspecified; G89.29 Other chronic pain; M54.9 Dorsalgia, unspecified; Z56.0 Unemployment, unspecified; Z90.49 Acquired absence of other specified parts of digestive tract; Z79.899 Other long term (current) drug therapy; Z80.9 Family history of malignant neoplasm, unspecified
CPT/HCPCS: 36415; 36600; 70450; 70544; 70551; 71045; 80053; 80202; 80305; 80320; 81001; 82803; 82948; 83605; 83735; 84100; 84132; 84145; 84443; 84484; 85018; 85025; 85610; 85730; 87040; 87070; 87077; 92616; 93005; 94002; 94003; 94640; 94660; 94760; 96361; 96374; 97116; 97162; 99291; C9113; J0330; J1650; J1953; J2060; J2250; J2270; J2405; J2704; J3370; J3480; J3490; J7030; J7512